=== PATIENT | female | born 1970 | race Caucasian/White ===

== ENCOUNTER 2021-08-17 19:42 | Inpatient (IN) | payer OTHER, SELFPAY ==
[2021-08-17 19:43] VITALS: BP 141/96; PULSE 66; RESP 16; TEMP 36.1; O2SAT 95; BMI 25.8
[2021-08-17 20:01] LABS: Glucose, Dipstick 100 mg/dl (Normal); Leukocyte Esterase-Dipstick 100 /ul (Negative); Nitrite-Dipstick Positive (Negative); Occult Blood-Urine 150 /ul (Negative); Protein-Dipstick 30 mg/dl (Negative); Specific Gravity, Urine 1.025 (1.002-1.030); Urine Clarity Sl. Cloudy (Clear); Urine Urobilinogen 8 mg/dl (Normal)
[2021-08-17 20:02] LABS: Color, Urine SEE COMMENT BELOW (Yellow); Ketone-Dipstick 150 mg/dl (Negative); Urine Bilirubin Dipstick 6 mg/dL (Negative)
--- NOTE | 2021-08-17 20:02 | US_ITS ---
HISTORY: PAIN -- concerns for choledocholithiasis,with pancreatitis TECHNIQUE: Trevizo scale and color doppler imaging was performed of the right upper quadrant structures. COMPARISON: Concurrent CT abdomen and pelvis FINDINGS: LIVER: Normal in echogenicity. Small ovoid 9 mm hyperechoic, non-shadowing lesion within posterior right lobe of liver. Right lobe measures 16 cm length. Mild intrahepatic biliary ductal dilatation. Main portal vein is patent. PANCREAS: Unremarkable as visualized. GALLBLADDER AND BILIARY TREE: Dilated. Gallbladder measures up to 13.5 cm in length. Gallbladder lumen filled with sludge and multiple shadowing stones. Thickened gallbladder wall measures 4 mm. Pericholecystic fluid demonstrated. Sonographic Zapata's sign is positive. Dilated extrahepatic biliary ducts. Common bile duct measures 8.6 mm. KIDNEYS: The right kidney measures 10.6 cm in length. No hydronephrosis. No focal parenchymal lesion or shadowing stones. AORTA AND IVC: Not imaged. US/Gallbladder IMPRESSION: 1. Constellation of findings compatible with acute cholecystitis. There is also biliary ductal dilatation. Recommend surgical consultation. 2. Small lesion within right lobe of liver with sonographic and CT characteristics compatible with benign hemangioma. at 2231 Reported and signed by: Tuan Walters MD Electronically Signed: Tuan Walters MD at 22:30 EDT Tel , Service support ,
--- NOTE | 2021-08-17 20:02 | CT_ITS ---
HISTORY: vomiting -- abd pain, jaundice, EXAMINATION: CT Abdomen And Pelvis W/ Contrast Injection TECHNIQUE: Helically acquired images were obtained of the abdomen and pelvis following IV contrast. A radiation dose optimization technique was used for this scan. IV Contrast dosage and agent: 100mL [id number]-370 Oral contrast: None. COMPARISON: None FINDINGS: LOWER CHEST: Mildly elevated right hemidiaphragm. No acute basilar airspace disease. Heart size within normal limits. LIVER: There is intrahepatic periportal edema and mild biliary ductal dilatation. Hazy subcentimeter low-attenuation lesion within posterior right lobe of liver. GALLBLADDER AND BILIARY TREE: Markedly dilated gallbladder contains heterogeneous intraluminal attenuation suggesting stones and/or sludge. There is pericholecystic edema and mild gallbladder wall thickening. Dilated extrahepatic biliary ducts with mucosal wall enhancement. Enhancement involves predominantly cystic duct. No radiopaque intraductal stone identified. Proximal common bile duct measures up to 11 mm diameter with somewhat gradual tapering distally at pancreatic head. KIDNEYS AND URETERS: Normal renal size. No concerning lesion. There is no perinephric inflammation or hydronephrosis. ADRENAL GLANDS: Non-enlarged. SPLEEN: Normal size without discrete mass. PANCREAS: No discrete mass or peripancreatic inflammation. BOWEL: Normal appendix posterior to cecum within right lower quadrant. No bowel obstruction or significant bowel thickening. Noninflamed distal colonic diverticula. LYMPH NODES: No enlarged mesenteric or retroperitoneal lymph nodes. PERITONEUM: Small amount of free peritoneal fluid. No free air. VESSELS: Major vessels are normal caliber and unremarkable. URINARY BLADDER: Unremarkable. REPRODUCTIVE ORGANS: No pelvic masses. ABDOMINAL WALL: No acute findings or significant hernia defect. BONES: Intact with no suspicious osseous lesion. CT/Abdomen/Pelvis W IV Cont ONLY IMPRESSION: Findings suggesting acute cholecystitis and superimposed cholangitis. There is intrahepatic and extra hepatic biliary ductal dilatation, and mild intrahepatic periportal edema. Differential includes choledocholithiasis, distal obstructing ductal lesion or stricture. Recommend surgical consultation and possible further evaluation with ERCP. Small indeterminate low-attenuation hepatic lesion. Possible benign cyst or hemangioma but metastatic lesion is not excluded, in light of above findings. Individualized dose optimization techniques were used for this CT. at 2051 Reported and signed by: Tuan Walters MD Electronically Signed: Tuan Walters MD at 20:51 EDT Tel , Service support ,
--- NOTE | 2021-08-17 20:03 | EDS_ITS ---
HPI HPI - GI History of Present Illness Chief Complaint: Abd Pain Informant: patient and spouse/S.O. Narrative Narrative: Here with significant other increasing abdominal pain for the past week. Yesterday nausea and vomiting. No hematemesis. Today noted jaundice. No urinary symptoms. Postmenopausal. Only surgical history is umbilical hernia 22 years ago. No daily medications. No history of similar. Normal bowel movements last 1 was yesterday with normal color. Pain started in the mid abdomen. Prior similar symptoms: No PFSH PFSH Medical History no medical history Home Medications NK 08/17/21 [History Last Taken Unknown] Allergy/AdvReac Type Severity Reaction Status Date / Time No Known Allergies Allergy Verified 08/17/21 19:44 Surgical History H/O hernia repair Surgical History no surgical history Social History Smoking Status: Never smoker ROS ROS ED Constitutional Constitutional ED: Denies chills, fever(s) or sweats Eyes Eyes: Denies change in vision ENT ENT ED: Denies dysphagia or sore throat Cardiovascular Cardiovascular: Denies chest pain, leg edema, palpitations or racing heartbeat Respiratory/Chest Respiratory/Chest: Denies cough, dyspnea or dyspnea on exertion Gastrointestinal Gastrointestinal: Reports abdominal pain, nausea and vomiting; Denies diarrhea Genitourinary Genitourinary ED: Denies dysuria, hematuria or urinary frequency Musculoskeletal Musculoskeletal: Denies back pain, extremity pain or neck pain Integumentary Reports other Details: Yellow skin ; Denies rash or wounds Neurologic Neurologic: Denies headache(s), paresthesias or weakness EXAM Physical Exam Const Vital Signs: 08/17/21 19:43 Temperature 97 F L Temperature Source Temporal Pulse Rate 66 Respiratory Rate 16 Blood Pressure 141/96 H Blood Pressure Mean 111 Pulse Ox 95 Positive well nourished and well developed Constitutional Narrative: Nontoxic, uncomfortable General Appearance ED: well developed HEENT Reports moist mucous membranes normocephalic and atraumatic Eyes PERRL, EOMs intact bilaterally and conjunctivae normal General Eye ED: Yes normal appearance of both eyes and scleral icterus Neck no lymphadenopathy and supple General: Negative for tenderness Chest Wall Chest: Negative for tenderness Resp normal respiratory effort and normal air movement Effort and Inspection: symmetric chest movement; Negative for respiratory distr ess Cardio regular rate, regular rhythm and no murmurs Peripheral Pulses: pulses 2+ throughout GI normal to inspection, nondistended, normoactive bowel sounds GI Narrative: Generalized tenderness to palpation. Palpation: Negative for guarding or rebound tenderness present Back/Spine no CVA tenderness and no thoracic nor lumbar tenderness Extremity normal to inspection General Extremety ED: Negative for edema or tenderness General Extremity: Negative for edema Neuro oriented x3 and no sensory deficits noted Sensorium / Orientation: awake and alert Skin no rashes or lesions noted General Skin Exam: jaundice MDM MDM MDM Narrative Medical decision making narrative: Patient with jaundice however presenting with abdominal pain vomiting prior to symptoms. Clinically with history concerning for potential cold though cholelithiasis possible pancreatitis with the vomitin g. Laboratory studies ordered with urine, CT abdomen pelvis IV contrast and right upper quadrant ultrasound ordered for further evaluation. Patient treated with morphine Zofran IV fluids. Laboratory studies notes white count 12.7 lipase was 50, elevated liver enzymes with direct bilirubin up at 7.3. Urine positive for nitrites and leukocytes. Culture sent. She denies urine symptoms. CT scan resulted first noting concerns for choledocholithiasis, acute cholecystitis along with superimposed cholangitis. Noted intrahepatic extrahepatic biliary duct dilatation with mild periportal edema, also noted concerns for 11 mm common bile duct dilatation proximally. Patient sodium at 125. I discussed with on-call surgeon Dr. Draper, states patient would need an ERCP first. States GI is on-call for the weekend. He will follow-up for eventual cholecystectomy after ERCP. I spoke with Dr. Taylor, updated on patient's presentations and findings and concerns. Patient vitals are stable cu rrently. Agrees with Zosyn being started. Patient to be kept n.p.o. after midnight, he was seen in the morning for plan ERCP. Hospitalist, Dr. Labm, discussed with for admission. Lab Data Labs: Laboratory Results - last 24 hr 08/17/21 08/17/21 08/17/21 19:47 20:00 20:00 WBC 12.7 H RBC 4.74 Hgb 14.2 Hct 40.3 MCV 85.0 MCH 30.0 MCHC 35.2 RDW Std Deviation 36.8 RDW Coeff of Sly 11.8 Plt Count 283 MPV 10.2 Immature Gran % (Auto) 0.600 Neut % (Auto) 84.8 H Lymph % (Auto) 5.5 L Oliver % (Auto) 9.0 Eos % (Auto) 0.0 Baso % (Auto) 0.1 Absolute Neuts (auto) 10.7 H Absolute Lymphs (auto) 0.70 L Nucleated RBC % 0 Sodium 125 L Potassium 3.4 L Chloride 88 L Carbon Dioxide 26.0 Anion Gap 11 BUN 6 L Creatinine 0.67 Estim Creat Clear Calc 92.99 Est GFR (MDRD) Af Amer 119 Est GFR (MDRD) Non-Af 99 BUN/Creatinine Ratio 9.0 L Glucose 147 H Lactic Acid Calcium 9.0 Total Bilirubin 9.70 H Direct Bilirubin 7.38 H AST 236 H ALT 666 H Alkaline Phosphatase 329 H Total Protein 7.8 Albumin 3.7 Globulin 4.1 Lipase 50 L Urine Color SEE COMMENT BELOW Urine Clarity Sl. Cloudy Urine pH 5.0 Ur Specific [place] 1.025 Urine Protein 30 H Urine Glucose (UA) 100 H Urine Ketones 150 A* Urine Occult Blood 150 H Urine Nitrite Positive H Urine Bilirubin 6 H Urine Urobilinogen 8 H Ur Leukocyte Esterase 100 H Urine RBC 0-5 SEEN Urine WBC 0-5 SEEN Ur Squamous Epith Cells 0-5 SEEN Urine Bacteria 1+ Urine Mucus 1+ 08/17/21 20:48 WBC RBC Hgb Hct MCV MCH MCHC RDW Std Deviation RDW Coeff of Sly Plt Count MPV Immature Gran % (Auto) Neut % (Auto) Lymph % (Auto) Oliver % (Auto) Eos % (Auto) Baso % (Auto) Absolute Neuts (auto) Absolute Lymphs (auto) Nucleated RBC % Sodium Potassium Chloride Carbon Dioxide Anion Gap BUN Creatinine Estim Creat Clear Calc Est GFR (MDRD) Af Amer Est GFR (MDRD) Non-Af BUN/Creatinine Ratio Glucose Lactic Acid 1.0 Calcium Total Bilirubin Direct Bilirubin AST ALT Alkaline Phosphatase Total Protein Albumin Globulin Lipase Urine Color Urine Clarity Urine pH Ur Specific [place] Urine Protein Urine Glucose (UA) Urine Ketones Urine Occult Blood Urine Nitrite Urine Bilirubin Urine Urobilinogen Ur Leukocyte Esterase Urine RBC Urine WBC Ur Squamous Epith Cells Urine Bacteria Urine Mucus Radiography Diagnostic Testing: Clinical Impression(s) from Imaging Studies Abdomen/Pelvis CT 08/17/21 20:02 IMPRESSION: Findings suggesting acute cholecystitis and superimposed cholangitis. There is intrahepatic and extra hepatic biliary ductal dilatation, and mild intrahepatic periportal edema. Differential includes choledocholithiasis, distal obstructing ductal lesion or stricture. Recommend surgical consultation and possible further evaluation with ERCP. Small indeterminate low-attenuation hepatic lesion. Possible benign cyst or hemangioma but metastatic lesion is not excluded, in light of above findings. Individualized dose optimization techniques were used for this CT. at 2052 Reported and signed by: Tuan Walters MD Electronically Signed: Tuan Walters MD at 20:51 EDT Tel , Service support , Gallbladder Ultrasound 08/17/21 20:02 IMPRESSION: 1. Constellation of findings compatible with acute cholecystitis. There is also biliary ductal dilatation. Recommend surgical consultation. 2. Small lesion within right lobe of liver with sonographic and CT characteristics compatible with benign hemangioma. at 2231 Reported and signed by: Tuan Walters MD Electronically Signed: Tuan Walters MD at 22:30 EDT Tel , Service support , Discharge Plan Dx/Rx/DC Orders Clinical Impression: Choledocholithiasis with acute cholecystitis with obstruction, Acute cholangitis, Transaminitis, Abdominal pain Disposition Disposition: Acute Care Hospital [facility] Discharge Date/Time: 08/17/21 22:19
[2021-08-17 20:06] LABS: Absolute Neutrophil Count 10.7 X10^3/uL (2.0-7.7); Basophil# 0.01 X10^3/uL; Basophil% 0.1 % (0-1); Hematocrit 40.3 % (37-47); Hemoglobin 14.2 g/dL (12.0-15.0); Lymphocyte % 5.5 % (19-41); Mean Corp Hgb Conc 35.2 g/dL (32-36); Mean Platelet Vol. 10.2 fl (6.2-12.0); Monocyte# 1.14 X10^3/uL; NRBC Flagged by Analyzer 0 % (0-5); Neutrophil # 10.72 X10^3/uL (2.7-7.7); Neutrophil % 84.8 % (47-70); Platelet Count 283 K/mm3 (150-450); RBC Distribution Width CV 11.8 % (11.6-14.6); RBC Distribution Width SD 36.8 fl (35.1-43.9); Red Blood Count 4.74 M/mm3 (4.2-5.4); White Blood Count 12.7 K/mm3 (4.4-11.0)
[2021-08-17 20:08] LABS: Bacteria 1+ /hpf (None Seen); Mucous, Urine 1+ /hpf (<or=2+); Red Blood Cells-Urine 0-5 SEEN /hpf (0-5); Squamous Epithelial Cells - UA 0-5 SEEN /hpf (5-10); White Blood Cells 0-5 SEEN /hpf (0-5)
[2021-08-17] MEDS: 0.9% Normal Saline 1,000 ML 1000 ML IV (20:10)
[2021-08-17] MEDS: Ondansetron 4 MG/2 ML Vial IV (20:13)
[2021-08-17] MEDS: Morphine 4 MG/ML Syringe IV ×2 (20:14→21:44)
[2021-08-17 20:21] LABS: AST(SGOT) 236 U/L (15-37); Alanine Aminotransfer ALT/SGPT 666 U/L (13-56); Albumin, Serum 3.7 g/dL (3.2-5.0); Alkaline Phosphatase 329 U/L (45-117); Anion Gap 11 (5-15); BUN 6 mg/dL (7-18); Bilirubin, Direct 7.38 mg/dL (0.00-0.30); Chloride 88 mmol/L (98-107); Creatinine, Serum 0.67 mg/dL (0.55-1.02); EST Glomerular Filtration Rate 99 mL/min (>60); Est Glom Filt Rate - Afr Amer 119 mL/min (>60); Estimated Creatinine Clearance 92.99 ml/min; Globulin 4.1 g/dL (2.2-4.2); Glucose 147 mg/dL (74-106); Lipase 50 U/L (73-393); Potassium 3.4 mmol/L (3.5-5.1); Protein, Total 7.8 g/dL (6.4-8.2); Sodium Level 125 mmol/L (136-145)
--- NOTE | 2021-08-17 21:53 | HP.PCM.HOS_ITS ---
HPI - General General Date of Admission: 08/17/21 HPI Narrative ODALIS RUTLEDGE, is a 51 F who presents to the emergency department with a 6-day history of progressively worsening excruciating abdominal pain. Her abdominal pain is. Umbilical and it radiates to the epigastric area. She described her pain as strong. The pain is aggravated with food. She took some Epson salt baths helped improved her pain. Associated with symptom is nausea, vomiting; jaundice and brownish-yellow urine. Her stool color is normal. She thinks she has mild constipation. Last time her bowels move was a day before presentation. Typically her bowels move daily. Emergency plan doctor discussed the case with general surgeon and then a health researcher at the ED. [facility] Medical History no medical history no medical history Home Medications NK 08/17/21 [History Last Taken Unknown] Allergy/AdvReac Type Severity Reaction Status Date / Time No Known Allergies Allergy Verified 08/17/21 19:44 Family History other other (Denies family medical history) Surgical History H/O hernia repair Surgical History no surgical history Social History Smoking Status: Never smoker ROS ROS Narrative Constitutional: Reports anorexia. Denies fever, chills, fatigue, and change in weight Eyes: Denies blurry vision, change in eye color, change in vision, discharge from eye(s), double vision, erythema, eye pain, loss of vision or other HEENT: Denies abnormal hearing, dysphagia, ear pain, epistaxis, headache(s), hearing loss, nasal congestion, nasal discharge, post nasal drip, sinus pres sure, sore throat or other Cardiovascular: Denies chest pain or palpitations. Denies dyspnea on exertion, orthopnea and paroxysmal nocturnal dyspnea Respiratory/Chest: Denies cough, excessive phlegm production, shortness of breath with exertion and wheezing Gastrointestinal: Reports abdominal pain, nausea, vomiting and constipation. Denies coffee ground emesis, diarrhea, dyspepsia, hematemesis, hematochezia, loose stools, melena, or other Genitourinary: Reports yellowish-brown urine. Denies burning urination, difficulty urinating, dysuria, hematuria, nocturia, urinary frequency, urinary hesitancy, urinary incontinence, urinary urgency or other Musculoskeletal: Denies arthralgias, back pain, joint pain, joint stiffness, joint swelling, myalgias, neck pain or other Neurologic: Denies abnormal gait, abnormal speech, confusion, disequilibrium, dizziness, focal weakness, headache(s), numbness, paresthesias, seizure-like activity, seizures, syncope, tingling, tremor(s) or other Psychiatric: Denies anxiety, depression, homicidal ideation, suicidal ideation or other Endocrinology: Denies change in body appearance, cold intolerance, excessive sweating, heat intolerance, polydipsia, polyuria or other Hematologic/Lymphatic: Denies anemia, easy bleeding, easy bruising, lymphaden opathy or other Integumentary: Reports jaundice. Allergic/Immunologic: Denies rhinitis, hives, eczema, asthma or other Vital Signs Vital Signs Vital Signs: 08/17/21 19:43 Temperature 97 F L Temperature Source Temporal Pulse Rate 66 Respiratory Rate 16 Blood Pressure 141/96 H Blood Pressure Mean 111 Pulse Ox 95 Weight Weight: 72.575 kg Body Mass Index (BMI) 25.8 Physical Exam Narrative Physical exam: General: Well-nourished, well-developed. Head: Normocephalic, atraumatic, no tenderness Eyes: Sclerae icterus; PERRLA, EOMI ENT, no trauma, moist mucous membranes, no rhinorrhea Neck: Nontender, full range of motion, no spinal tenderness, deformities, step- off CVS: Regular rate and rhythm. S1-S2 present. No murmur, gallop or rub. Respiratory : clear to auscultation bilaterally, chest wall nontender, no wheezing Abdomen: Soft, tender, nondistended, normal bowel sounds, no masses : Deferred Back: Nontender, no CVA tenderness, no midline spinal tenderness, deformities, step-offs Extremities: Nontender full range of motion, no trauma Skin: Jaundiced, no trauma, no abrasions Neuro: Alert, oriented, cranial nerves II through XII grossly intact. Psychiatry: Normal mood. Normal affect. Not depressed. Not anxious. Results Lab / Micro Data Result Diagrams: 08/17/21 20:00 08/17/21 20:00 Labs: Laboratory Results - last 24 hr 08/17/21 19:47: Urine Color SEE COMMENT BELOW, Urine Clarity Sl. Cloudy, Urine pH 5.0, Ur Specific [place] 1.025, Urine Protein 30 H, Urine Glucose (UA) 100 H, Urine Ketones 150 A*, Urine Occult Blood 150 H, Urine Nitrite Positive H, Urine Bilirubin 6 H, Urine Urobilinogen 8 H, Ur Leukocyte Esterase 100 H, Urine RBC 0- 5 SEEN, Urine WBC 0-5 SEEN, Ur Squamous Epith Cells 0-5 SEEN, Urine Bacteria 1+, Urine Mucus 1+ 08/17/21 20:00: WBC 12.7 H, RBC 4.74, Hgb 14.2, Hct 40.3, MCV 85.0, MCH 30.0, MCHC 35.2, RDW Std Deviation 36.8, RDW Coeff of Sly 11.8, Plt Count 283, MPV 10.2, Immature Gran % (Auto) 0.600, Neut % (Auto) 84.8 H, Lymph % (Auto) 5.5 L, [place] % (Auto) 9.0, Eos % (Auto) 0.0, Baso % (Auto) 0.1, Absolute Neuts (auto) 10.7 H, Absolute Lymphs (auto) 0.70 L, Nucleated RBC % 0 08/17/21 20:00: Sodium 125 L, Potassium 3.4 L, Chloride 88 L, Carbon Dioxide 26.0, Anion Gap 11, BUN 6 L, Creatinine 0.67, Estim Creat Clear Calc 92.99, Est GFR (MDRD) Af Amer 119, Est GFR (MDRD) Non-Af 99, BUN/Creatinine Ratio 9.0 L, Glucose 147 H, Calcium 9.0, Total Bilirubin 9.70 H, Direct Bilirubin 7.38 H, AST 236 H, ALT 666 H, Alkaline Phosphatase 329 H, Total Protein 7.8, Albumin 3.7, Globulin 4.1, Lipase 50 L 08/17/21 20:48: Lactic Acid 1.0 Micro: Microbiology 08/17/21 20:38 Nasal Secretion SARS-CoV-2 Antigen (Rapid) - Final Radiology Impression Abdomen/Pelvis CT 08/17/21 20:02 IMPRESSION: Findings suggesting acute cholecystitis and superimposed cholangitis. There is intrahepatic and extra hepatic biliary ductal dilatation, and mild intrahepatic periportal edema. Differential includes choledocholithiasis, distal obstructing ductal lesion or stricture. Recommend surgical consultation and possible further evaluation with ERCP. Small indeterminate low-attenuation hepatic lesion. Possible benign cyst or hemangioma but metastatic lesion is not excluded, in light of above findings. Individualized dose optimization techniques were used for this CT. at 205 Reported and signed by: Tuan Walters MD Electronically Signed: Tuan Walters MD at 20:51 EDT Tel , Service support , Assessment & Plan Assessment/Plan (1) Choledocholithiasis with acute cholecystitis with obstruction: (2) Acute cholangitis: (3) Transaminitis: (4) Cholecystitis: PLAN: Acute cholangitis/acute cholecystitis/acute choledocholithiasis White count of 12.7 with neutrophilic predominance and with lymphopenia. Low- grade fever of 99.2F. Ultrasound showed acute cholecystitis; biliary dilatation and benign hepatic hemangioma. Abdomen/pelvis CT showed acute cholecystitis superimposed on cholangitis; and intrahepatic and extrahepatic biliary ductal dilatation. Abdominal ultrasound, abdomen and pelvis CT was independently interpreted and I agree with radiologist interpretation. Emergency Department doctor discussed the case with gastroenterology and general surgery. Gastroenterology and general surgery and consulted. Started on Zosyn in the emergency department and continued. CMP showed elevated total bili direct bili; and liver biochemistry. Trend CBC and CMP Keep n.p.o. Gentle IV hydration. Hyponatremia Review of CMP showed sodium of 125; chloride of 88. Likely secondary to secondary to hypovolemia from vomiting and decreased intake. Gentle hydration as above. Trend CMP. Hypokalemia Potassium of 3.4 on admission. IV normal saline potassium ordered. Trend BMP. DVT prophylaxis: No chemical prophylaxis as patient is surgical candidate. SCD ordered. Charges/Coding Visit Charges Inpatient E&M: 56336 Init Hosp L3
[2021-08-17 21:56] VITALS: BP 132/81; PULSE 67; RESP 18; TEMP 36.8; O2SAT 95
[2021-08-17 22:28] VITALS: BP 134/85; PULSE 62; RESP 16; TEMP 37.3; O2SAT 95; BMI 25.9
[2021-08-17] MEDS: MELATONIN 3 MG TABLET PO (22:52)
[2021-08-17] MEDS: proCHLORPERazine 10 MG/2 ML Vial 5 MG IV (22:52)
[2021-08-17] MEDS: 0.9% Normal Saline 1,000 ML 75 ML IV (22:52)
[2021-08-17] MEDS: Potassium Chloride 40 MEQ in 0.9% Normal Saline 1,000 ML 75 MEQ IV (23:45)
[2021-08-18] VITALS (14 sets, daily range): BP systolic 93–131; BP diastolic 57–89; PULSE 65–90; RESP 16–18; TEMP 36.7–37.3; O2SAT 92–99; BMI 25.9
[2021-08-18] MEDS: 0.9% Saline Lock 10 ML Syringe IV ×2 (02:32→12:36)
[2021-08-18] MEDS: Morphine 4 MG/ML Syringe IV ×4 (02:32→12:36)
[2021-08-18 05:20] LABS: Absolute Lymphocyte Count 0.56 X10^3/uL (0.83-4.51); Absolute Neutrophil Count 9.6 X10^3/uL (2.0-7.7); Basophil# 0.02 X10^3/uL; Basophil% 0.2 % (0-1); Hematocrit 38.1 % (37-47); Hemoglobin 13.2 g/dL (12.0-15.0); Lymphocyte # 0.56 X10^3/ul (0.83-4.51); Lymphocyte % 4.8 % (19-41); Mean Corp Hgb Conc 34.6 g/dL (32-36); Mean Corpuscular Volume 86.6 fL (81-99); Mean Platelet Vol. 10.4 fl (6.2-12.0); Monocyte% 11.3 % (0-10); NRBC Flagged by Analyzer 0 % (0-5); Neutrophil # 9.57 X10^3/uL (2.7-7.7); Neutrophil % 82.8 % (47-70); POSITIVE DIFFERENTIAL YES; Platelet Count 246 K/mm3 (150-450); RBC Distribution Width CV 11.9 % (11.6-14.6); RBC Distribution Width SD 38.1 fl (35.1-43.9); White Blood Count 11.6 K/mm3 (4.4-11.0)
[2021-08-18 05:42] LABS: Differential Indicated SCAN CRITERIA MET
[2021-08-18 05:46] LABS: ALB/GLOB Ratio 0.7 RATIO (0.9-2.4); AST(SGOT) 136 U/L (15-37); Alanine Aminotransfer ALT/SGPT 500 U/L (13-56); Albumin, Serum 2.9 g/dL (3.2-5.0); Alkaline Phosphatase 298 U/L (45-117); Anion Gap 9 (5-15); BUN 4 mg/dL (7-18); BUN/Creat Ratio 5.8 RATIO (10-20); Calcium,Total 8.5 mg/dL (8.5-10.1); Chloride 91 mmol/L (98-107); EST Glomerular Filtration Rate 94 mL/min (>60); Est Glom Filt Rate - Afr Amer 114 mL/min (>60); Estimated Creatinine Clearance 89.01 ml/min; Glucose 119 mg/dL (74-106); Potassium 3.6 mmol/L (3.5-5.1); Protein, Total 6.9 g/dL (6.4-8.2); Sodium Level 128 mmol/L (136-145)
--- NOTE | 2021-08-18 06:00 | EKG12_ITS ---
Test Reason : PRE OP Blood Pressure : / mmHG Vent. Rate : 068 BPM Atrial Rate : 068 BPM P-R Int : 138 ms QRS Dur : 084 ms QT Int : 368 ms P-R-T Axes : 075 033 008 degrees QTc Int : 391 ms Normal sinus rhythm Biatrial enlargement Low voltage QRS Nonspecific ST and T wave abnormality Abnormal ECG No previous ECGs available Confirmed by GOMEZ SAAB, GABRIELA ([id number]), assignment editor PAMELA FERREIRA ([id number]) on 08/20/2021 9:57:20 AM Referred By: SOSA Confirmed By:GABRIELA DYER MD
--- NOTE | 2021-08-18 07:24 | CON.PCM.GI_ITS ---
HPI Consult Data Date of Consult: 08/18/21 HPI Narrative HPI Narrative: ODALIS RUTLEDGE, is a 51 F who presents with significant other increasing abdominal pain for the past week. She has no past medical history. Her symptoms began with abdominal pain in mid epigastric area which was nonradiating associated with nausea, vomiting. She noted that she began having darkened urine followed by darkening yellowing skin and eyes. The only surgical history is umbilical hernia 22 years ago. No daily medications. No history of similar. Normal bowel movements last 1 was yesterday with normal color. Pain started in the mid abdomen. When she presented to the ED she was discovered to have a significant cholestatic hepatitis with jaundice. Her white count was also elevated. Blood cultures were drawn and antibiotic therapy was started. She had a CT scan abdomen pelvis that showed intra and extra hepatic ductal dilation. I was consulted for management. [facility] Medical History no medical history Home Medications NK 08/17/21 [History Last Taken Unknown] Allergy/AdvReac Type Severity Reaction Status Date / Time No Known Allergies Allergy Verified 08/17/21 19:44 Family History other Surgical History H/O hernia repair Surgical History no surgical history Social History Smoking Status: Never smoker ROS Review of Systems ROS Unobtainable: other Constitutional Constitutional: Denies fatigue, fever(s), poor appetite, weight gain or weight loss ENT HEENT: Denies mouth lesions Cardiovascular Cardiovascular: Denies abdominal bloating, abdominal edema or abdominal pain Respiratory/Chest Respiratory/Chest: Denies change in mental status, change in phlegm color, chest congestion or chest tightness Gastrointestinal Gastrointestinal: Reports abdominal pain and nausea Genitourinary Genitourinary: Denies abdominal discomfort, burning urination or itching Musculoskeletal Musculoskeletal: Reports as per HPI; Denies muscle weakness or myalgias Integumentary Integumentary: Denies jaundice Neurologic Neurologic: Denies lack of coordination or weakness Psychiatric Psychiatric: Denies confusion, depression, memory loss, mood swings, paranoia or suicidal ideation Endocrine Endocrinology: Denies systems reviewed and no addt'l complaints, except as documented Hematologic/Lymphatic Hematologic/Lymphatic: Denies anemia, easy bleeding, easy bruising or lymphadenopathy Allergic/Immunologic Allergic/Immunologic: Denies systems reviewed and no addt'l complaints, except as documented Physical Exam Const alert General Appearance: cooperative Orientation / Consciousness: oriented to person HEENT hearing grossly normal bilaterally Head and Scalp: normal to inspection Face and Sinus: face symmetric Nose: external nose normal Mouth: oral and palatal mucosa normal Eyes conjunctivae normal General Eye: normal appearance of both eyes Sclera: sclera abnormal Neck full ROM General: normal visual inspection Lymph Lymphatic: no lymphadenopathy noted Chest inspection of chest normal and palpation of chest normal Chest: symmetrical chest wall rise Resp normal respiratory effort Effort and Inspection: able to speak in complete sentences Cardio regular rate GI non-distended Auscultation: hypoactive bowel sounds Palpation: tender and no hepatosplenomegaly Percussion: normal to percussion Rectal Exam: deferred Neuro Speech: speech normal Gait (Neuro): normal gait Lab / Micro Data Result Diagrams: 08/18/21 04:54 08/18/21 04:54 Labs: Laboratory Results - last 24 hr 08/17/21 19:47: Urine Color SEE COMMENT BELOW, Urine Clarity Sl. Cloudy, Urine pH 5.0, Ur Specific [place] 1.025, Urine Protein 30 H, Urine Glucose (UA) 100 H, Urine Ketones 150 A*, Urine Occult Blood 150 H, Urine Nitrite Positive H, Urine Bilirubin 6 H, Urine Urobilinogen 8 H, Ur Leukocyte Esterase 100 H, Urine RBC 0- 5 SEEN, Urine WBC 0-5 SEEN, Ur Squamous Epith Cells 0-5 SEEN, Urine Bacteria 1+, Urine Mucus 1+ 08/17/21 20:00: WBC 12.7 H, RBC 4.74, Hgb 14.2, Hct 40.3, MCV 85.0, MCH 30.0, MCHC 35.2, RDW Std Deviation 36.8, RDW Coeff of Sly 11.8, Plt Count 283, MPV 10.2, Immature Gran % (Auto) 0.600, Neut % (Auto) 84.8 H, Lymph % (Auto) 5.5 L, [place] % (Auto) 9.0, Eos % (Auto) 0.0, Baso % (Auto) 0.1, Absolute Neuts (auto) 10.7 H, Absolute Lymphs (auto) 0.70 L, Nucleated RBC % 0 08/17/21 20:00: Sodium 125 L, Potassium 3.4 L, Chloride 88 L, Carbon Dioxide 26.0, Anion Gap 11, BUN 6 L, Creatinine 0.67, Estim Creat Clear Calc 92.99, Est GFR (MDRD) Af Amer 119, Est GFR (MDRD) Non-Af 99, BUN/Creatinine Ratio 9.0 L, Glucose 147 H, Calcium 9.0, Total Bilirubin 9.70 H, Direct Bilirubin 7.38 H, AST 236 H, ALT 666 H, Alkaline Phosphatase 329 H, Total Protein 7.8, Albumin 3.7, Globulin 4.1, Lipase 50 L 08/17/21 20:48: Lactic Acid 1.0 08/18/21 04:54: WBC 11.6 H, RBC 4.40, Hgb 13.2, Hct 38.1, MCV 86.6, MCH 30.0, MCHC 34.6, RDW Std Deviation 38.1, RDW Coeff of Sly 11.9, Plt Count 246, MPV 10.4, Immature Gran % (Auto) 0.900, Neut % (Auto) 82.8 H, Lymph % (Auto) 4.8 L, [place] % (Auto) 11.3 H, Eos % (Auto) 0.0, Baso % (Auto) 0.2, Absolute Neuts (auto) 9.6 H, Absolute Lymphs (auto) 0.56 L, Nucleated RBC % 0 08/18/21 04:54: Sodium 128 L, Potassium 3.6, Chloride 91 L, Carbon Dioxide 28.0, Anion Gap 9, BUN 4 L, Creatinine 0.70, Estim Creat Clear Calc 89.01, Est GFR (MDRD) Af Amer 114, Est GFR (MDRD) Non-Af 94, BUN/Creatinine Ratio 5.8 L, Glucose 119 H, Calcium 8.5, Total Bilirubin 9.10 H, AST 136 H, ALT 500 H, Alkaline Phosphatase 298 H, Total Protein 6.9, Albumin 2.9 L, Globulin 4.0, Albumin/Globulin Ratio 0.7 L Micro: Microbiology 08/17/21 20:38 Nasal Secretion SARS-CoV-2 Antigen (Rapid) - Final Radiology Impression Abdomen/Pelvis CT 08/17/21 20:02 IMPRESSION: Findings suggesting acute cholecystitis and superimposed cholangitis. There is intrahepatic and extra hepatic biliary ductal dilatation, and mild intrahepatic periportal edema. Differential includes choledocholithiasis, distal obstructing ductal lesion or stricture. Recommend surgical consultation and possible further evaluation with ERCP. Small indeterminate low-attenuation hepatic lesion. Possible benign cyst or hemangioma but metastatic lesion is not excluded, in light of above findings. Individualized dose optimization techniques were used for this CT. at 2052 Reported and signed by: Tuan Walters MD Electronically Signed: Tuan Walters MD at 20:51 EDT Tel , Service support , Gallbladder Ultrasound 08/17/21 20:02 IMPRESSION: 1. Constellation of findings compatible with acute cholecystitis. There is also biliary ductal dilatation. Recommend surgical consultation. 2. Small lesion within right lobe of liver with sonographic and CT characteristics compatible with benign hemangioma. at 2231 Reported and signed by: Tuan Walters MD Electronically Signed: Tuan Walters MD at 22:30 EDT Tel , Service support , Assessment & Plan Assessment/Plan (1) Choledocholithiasis with acute cholecystitis with obstruction: PLAN: Patient will need to go undergo ERCP today. Her white blood cell count is improving as is her sodium and LFTs. She is still in a lot of pain. She would continue IV antibiotics, remain n.p.o. Alternatives risk and benefits were explained to the patient including and not withstanding post ERCP pancreatitis. Charges/Coding Visit Charges Inpatient E&M: 90129 Init Hosp L2
--- NOTE | 2021-08-18 08:37 | EX.PCM.CON.S ---
Assessment & Plan Assessment/Plan (1) Choledocholithiasis with acute cholecystitis with obstruction: PLAN: Patient has elevated LFTs and CT scan shows dilated common bile duct. Patient also has thickened gallbladder wall with gallstones. She likely has acute choledocholithiasis and acute cholecystitis. Patient is having ERCP today with GI and I plan for laparoscopic cholecystectomy tomorrow. I discussed the procedure in detail with the patient. I discussed the risks, benefits, and alternatives of the procedure. I discussed the risks including but not limited to bleeding, infection, injury to surrounding organs such as the liver, bile duct, bowels. I did discuss the possibility of having to convert to an open procedure as well as the possibility that if any injuries occurred this may necessitate further surgery at a tertiary care center. Landon Draper MD Pager: [facility] [address] [place] [address], [address] [place] [address] Office: HPI Consult Data Date of Consult: 08/18/21 HPI Narrative HPI Narrative: ODALIS RUTLEDGE, is a 51 F who presents with abdominal pain for a week. Patient reports pain in the right upper quadrant. This morning the patient reports pain intermittently. [facility] Medical History no medical history Home Medications NK 08/17/21 [History Last Taken Unknown] Allergy/AdvReac Type Severity Reaction Status Date / Time No Known Allergies Allergy Verified 08/17/21 19:44 Family History other Surgical History H/O hernia repair Surgical History no surgical history Social History Smoking Status: Never smoker ROS Constitutional Constitutional: Denies anorexia or fatigue ENT HEENT: Denies abnormal hearing Cardiovascular Cardiovascular: Denies chest pain Respiratory/Chest Respiratory/Chest: Denies cough Gastrointestinal Gastrointestinal: Reports abdominal pain and constipation; Denies diarrhea, hematemesis, nausea or vomiting Genitourinary Genitourinary: Denies change in urinary stream Musculoskeletal Musculoskeletal: Denies abnormal gait Integumentary Integumentary: Denies new lesions Neurologic Neurologic: Denies abnormal gait Endocrine Endocrinology: Denies flushing Hematologic/Lymphatic Hematologic/Lymphatic: Denies easy bleeding Physical Exam Const alert and oriented x3 Exam Limitations: no limitations HEENT normocephalic Eyes PERRL Resp normal respiratory effort Cardio Rate: regular rate GI soft to palpation Palpation: tender RUQ Lab / Micro Data Result Diagrams: 08/18/21 04:54 08/18/21 04:54 Labs: Laboratory Results - last 24 hr 08/17/21 19:47: Urine Color SEE COMMENT BELOW, Urine Clarity Sl. Cloudy, Urine pH 5.0, Ur Specific [place] 1.025, Urine Protein 30 H, Urine Glucose (UA) 100 H, Urine Ketones 150 A*, Urine Occult Blood 150 H, Urine Nitrite Positive H, Urine Bilirubin 6 H, Urine Urobilinogen 8 H, Ur Leukocyte Esterase 100 H, Urine RBC 0-5 SEEN, Urine WBC 0-5 SEEN, Ur Squamous Epith Cells 0-5 SEEN, Urine Bacteria 1+, Urine Mucus 1+ 08/17/21 20:00: WBC 12.7 H, RBC 4.74, Hgb 14.2, Hct 40.3, MCV 85.0, MCH 30.0, MCHC 35.2, RDW Std Deviation 36.8, RDW Coeff of Sly 11.8, Plt Count 283, MPV 10.2, Immature Gran % (Auto) 0.600, Neut % (Auto) 84.8 H, Lymph % (Auto) 5.5 L, [place] % (Auto) 9.0, Eos % (Auto) 0.0, Baso % (Auto) 0.1, Absolute Neuts (auto) 10.7 H, Absolute Lymphs (auto) 0.70 L, Nucleated RBC % 0 08/17/21 20:00: Sodium 125 L, Potassium 3.4 L, Chloride 88 L, Carbon Dioxide 26.0, Anion Gap 11, BUN 6 L, Creatinine 0.67, Estim Creat Clear Calc 92.99, Est GFR (MDRD) Af Amer 119, Est GFR (MDRD) Non-Af 99, BUN/Creatinine Ratio 9.0 L, Glucose 147 H, Calcium 9.0, Total Bilirubin 9.70 H, Direct Bilirubin 7.38 H, AST 236 H, ALT 666 H, Alkaline Phosphatase 329 H, Total Protein 7.8, Albumin 3.7, Globulin 4.1, Lipase 50 L 08/17/21 20:48: Lactic Acid 1.0 08/18/21 04:54: WBC 11.6 H, RBC 4.40, Hgb 13.2, Hct 38.1, MCV 86.6, MCH 30.0, MCHC 34.6, RDW Std Deviation 38.1, RDW Coeff of Sly 11.9, Plt Count 246, MPV 10.4, Immature Gran % (Auto) 0.900, Neut % (Auto) 82.8 H, Lymph % (Auto) 4.8 L, [place] % (Auto) 11.3 H, Eos % (Auto) 0.0, Baso % (Auto) 0.2, Absolute Neuts (auto) 9.6 H, Absolute Lymphs (auto) 0.56 L, Nucleated RBC % 0 08/18/21 04:54: Sodium 128 L, Potassium 3.6, Chloride 91 L, Carbon Dioxide 28.0, Anion Gap 9, BUN 4 L, Creatinine 0.70, Estim Creat Clear Calc 89.01, Est GFR (MDRD) Af Amer 114, Est GFR (MDRD) Non-Af 94, BUN/Creatinine Ratio 5.8 L, Glucose 119 H, Calcium 8.5, Total Bilirubin 9.10 H, AST 136 H, ALT 500 H, Alkaline Phosphatase 298 H, Total Protein 6.9, Albumin 2.9 L, Globulin 4.0, Albumin/Globulin Ratio 0.7 L Micro: Microbiology 08/17/21 20:38 Nasal Secretion SARS-CoV-2 Antigen (Rapid) - Final Radiology Impression Abdomen/Pelvis CT 08/17/21 20:02 IMPRESSION: Findings suggesting acute cholecystitis and superimposed cholangitis. There is intrahepatic and extra hepatic biliary ductal dilatation, and mild intrahepatic periportal edema. Differential includes choledocholithiasis, distal obstructing ductal lesion or stricture. Recommend surgical consultation and possible further evaluation with ERCP. Small indeterminate low-attenuation hepatic lesion. Possible benign cyst or hemangioma but metastatic lesion is not excluded, in light of above findings. Individualized dose optimization techniques were used for this CT. at 205 Reported and signed by: Tuan Walters MD Electronically Signed: Tuan Walters MD at 20:51 EDT Tel , Service support , Gallbladder Ultrasound 08/17/21 20:02 IMPRESSION: 1. Constellation of findings compatible with acute cholecystitis. There is also biliary ductal dilatation. Recommend surgical consultation. 2. Small lesion within right lobe of liver with sonographic and CT characteristics compatible with benign hemangioma. at 2231 Reported and signed by: Tuan Walters MD Electronically Signed: Tuan Walters MD at 22:30 EDT Tel , Service support ,
--- NOTE | 2021-08-18 10:08 | CASEMGMT ---
JOHAN RODRIGUEZ Assessment: Face to Face with pt for initial transition planning/care coordination assessment. JOHAN RODRIGUEZ introduced self and role at [facility], pt voices understanding and consents to assessment. Pt is O x4, drowsy and answers all questions appropriately at this time. Pt lying in bed in no distress. at bedside. Care providers, pharmacy, and demographics verified/updated. Admitting Dx: acute choleycystitis and cholangitis PCP:Pt denies having a PCP. Is agreeable to receiving a local healthcare provider directory. Specialists:Pt denies. Preferred Pharmacy: [facility] Retail Insurance: [employer] Prescription Benefit: no LW/HPOA: Pt states she has a LW/DPOA and her DPOA is either Willie Delgado or Romeo Delgado, both are brother in laws. Pt is aware that her DPOA is not on file at [facility] and may bring in at any time to be scanned into her chart. LNOK: Brien Oliveira, son; Bhupendra Oliveira, ; Romeo Delgado, brother in law; Willie Delgado, brother in law Living Arrangements: Pt lives in a ranch with entry through the basement without steps with her . Pt reports being I in ADL's and denies concerns at home. Transportation: Pt hires a airport driver when needed to attend medical appts. Denies concerns with transportation. DME/HHC/SNF: Pt denies having any DME, previous HHC or SNF stays. Pt states no concerns with going home at time of dc. Pt states no further concerns/needs. CM to follow. Advised pt to ask CM if any further question/concerns/needs arise, voices understanding. Pt Goal: Home Plan: Home with family support.
--- NOTE | 2021-08-18 13:33 | PN.HOSP_ITS ---
Subjective Subjective Mrs. Oliveira was admitted overnight with a 6 day progressively worsening abdominal pain that was epigastric and right upper quadrant. In the emergency department she was found to have significant cholestatic hepatitis with jaundice and elevated white count. CT was performed and showed intra and extrahepatic ductal dilation. The patient was recently medicated with morphine and therefore is sleepy but arousable. She is to go for an ERCP with Dr. Taylor this afternoon and to surgery tomorrow for a cholecystectomy. Objective Data Objective Data Vital Signs: Vital Signs Temp Pulse Resp BP Pulse Ox 98.2 F 66 18 131/87 H 96 08/18/21 12:46 08/18/21 12:46 08/18/21 12:46 08/18/21 12:46 08/18/21 12:46 Oxygen Delivery Method Room Air Weight: 72.8 kg Body Mass Index (BMI) 25.9 Intake & Output: Intake and Output for Last 24 Hours 08/16/21 08/17/21 08/18/21 23:59 23:59 23:59 Intake Total 1116.25 / 1191.25 184.25 / 184.25 Output Total 50 / 50 800 / 800 Balance 1066.25 / 1141.25 -615.75 / -615.75 Lab / Micro Data Result Diagrams: 08/18/21 04:54 08/18/21 04:54 Labs: Laboratory Results - last 24 hr 08/17/21 19:47: Urine Color SEE COMMENT BELOW, Urine Clarity Sl. Cloudy, Urine pH 5.0, Ur Specific [place] 1.025, Urine Protein 30 H, Urine Glucose (UA) 100 H, Urine Ketones 150 A*, Urine Occult Blood 150 H, Urine Nitrite Positive H, Urine Bilirubin 6 H, Urine Urobilinogen 8 H, Ur Leukocyte Esterase 100 H, Urine RBC 0- 5 SEEN, Urine WBC 0-5 SEEN, Ur Squamous Epith Cells 0-5 SEEN, Urine Bacteria 1+, Urine Mucus 1+ 08/17/21 20:00: WBC 12.7 H, RBC 4.74, Hgb 14.2, Hct 40.3, MCV 85.0, MCH 30.0, MCHC 35.2, RDW Std Deviation 36.8, RDW Coeff of Sly 11.8, Plt Count 283, MPV 10.2, Immature Gran % (Auto) 0.600, Neut % (Auto) 84.8 H, Lymph % (Auto) 5.5 L, [place] % (Auto) 9.0, Eos % (Auto) 0.0, Baso % (Auto) 0.1, Absolute Neuts (auto) 10.7 H, Absolute Lymphs (auto) 0.70 L, Nucleated RBC % 0 08/17/21 20:00: Sodium 125 L, Potassium 3.4 L, Chloride 88 L, Carbon Dioxide 26.0, Anion Gap 11, BUN 6 L, Creatinine 0.67, Estim Creat Clear Calc 92.99, Est GFR (MDRD) Af Amer 119, Est GFR (MDRD) Non-Af 99, BUN/Creatinine Ratio 9.0 L, Glucose 147 H, Calcium 9.0, Total Bilirubin 9.70 H, Direct Bilirubin 7.38 H, AST 236 H, ALT 666 H, Alkaline Phosphatase 329 H, Total Protein 7.8, Albumin 3.7, Globulin 4.1, Lipase 50 L 08/17/21 20:48: Lactic Acid 1.0 08/18/21 04:54: WBC 11.6 H, RBC 4.40, Hgb 13.2, Hct 38.1, MCV 86.6, MCH 30.0, MCHC 34.6, RDW Std Deviation 38.1, RDW Coeff of Sly 11.9, Plt Count 246, MPV 10.4, Immature Gran % (Auto) 0.900, Neut % (Auto) 82.8 H, Lymph % (Auto) 4.8 L, [place] % (Auto) 11.3 H, Eos % (Auto) 0.0, Baso % (Auto) 0.2, Absolute Neuts (auto) 9.6 H, Absolute Lymphs (auto) 0.56 L, Nucleated RBC % 0 08/18/21 04:54: Sodium 128 L, Potassium 3.6, Chloride 91 L, Carbon Dioxide 28.0, Anion Gap 9, BUN 4 L, Creatinine 0.70, Estim Creat Clear Calc 89.01, Est GFR (MDRD) Af Amer 114, Est GFR (MDRD) Non-Af 94, BUN/Creatinine Ratio 5.8 L, Glucose 119 H, Calcium 8.5, Total Bilirubin 9.10 H, AST 136 H, ALT 500 H, Alkaline Phosphatase 298 H, Total Protein 6.9, Albumin 2.9 L, Globulin 4.0, Albumin/Globulin Ratio 0.7 L Micro: Microbiology 08/17/21 19:47 Urine, Clean Catch Urine Culture - Preliminary Culture exhibits no growth. 08/17/21 20:38 Nasal Secretion SARS-CoV-2 Antigen (Rapid) - Final Radiography Diagnostic Testing: Radiology Impression Abdomen/Pelvis CT 08/17/21 20:02 IMPRESSION: Findings suggesting acute cholecystitis and superimposed cholangitis. There is intrahepatic and extra hepatic biliary ductal dilatation, and mild intrahepatic periportal edema. Differential includes choledocholithiasis, distal obstructing ductal lesion or stricture. Recommend surgical consultation and possible further evaluation with ERCP. Small indeterminate low-attenuation hepatic lesion. Possible benign cyst or hemangioma but metastatic lesion is not excluded, in light of above findings. Individualized dose optimization techniques were used for this CT. at 2052 Reported and signed by: Tuan Walters MD Electronically Signed: Tuan Walters MD at 20:51 EDT Tel , Service support , Gallbladder Ultrasound 08/17/21 20:02 IMPRESSION: 1. Constellation of findings compatible with acute cholecystitis. There is also biliary ductal dilatation. Recommend surgical consultation. 2. Small lesion within right lobe of liver with sonographic and CT characteristics compatible with benign hemangioma. at 2231 Reported and signed by: Tuan Walters MD Electronically Signed: Tuan Walters MD at 22:30 EDT Tel , Service support , Physical Exam Const Constitutional Narrative: Sleepy but awakens easily, was recently medicated with morphine, nontoxic-appearing, nursing at bedside Nutritional Appearance: overweight HEENT head/scalp atraumatic Head and Scalp: normocephalic Eyes Eyes Narrative: Scleral icterus Resp normal respiratory effort, no retractions, no use of accessory muscles and clear to auscultation bilaterally Auscultation: Negative for crackles, rales, rhonchi or wheezes Cardio regular rate, regular rhythm, S1 normal heart sound, S2 normal heart sound, no murmurs, no rub, no gallops, no clicks and no JVD GI normal to inspection, nondistended, normoactive bowel sounds, soft to palpation and non-distended Palpation: tender epigastric, LUQ and Zapata's sign Extremity no clubbing, cyanosis or edema Peripheral Pulses: Yes pulses 2+ throughout Skin no rashes or lesions noted, no wounds, skin turgor normal, No no jaundice, no petechiae and no mottling Skin Narrative: Jaundice Neuro CN's II-XII intact bilaterally, moves all extremities and no focal motor deficits Neuro Narrative: Sleepy but awakens and is appropriate Speech: speech normal Psych affect normal Assessment & Plan Assessment/Plan (1) Acute cholangitis: (2) Choledocholithiasis with acute cholecystitis with obstruction: (3) Cholecystitis: (4) Transaminitis: PLAN: Acute choledocholithiasis with acute cholecystitis and obstruction -Continue IV fluids -Continue as needed pain medication -Continue antiemetics -Patient to remain n.p.o. -Continue IV antibiotics -ERCP today with GI -Plan is for cholecystectomy tomorrow -Appreciate GI and general surgery input Acute hyponatremia/hypochloremia -Suspect related to volume depletion and dehydration -Slowly correcting with IV fluids -If continues to correct no further work-up needed -Patient is on no home medications that would induce hyponatremia Transaminitis -Secondary to above -Continue to monitor -Slightly improved today Hypokalemia -Resolved DVT prophylaxis -SCDs CODE STATUS -Full code Charges/Coding Visit Charges Inpatient E&M: 70238 Subs Hosp L2
[2021-08-18] MEDS: 0.9% Normal Saline 1,000 ML 100 ML IV (15:30)
--- NOTE | 2021-08-18 16:00 | RAD_ITS ---
STUDY: ERCP. REASON FOR EXAM: Female, 51 years old. Cholangitis FLUOROSCOPY TIME (if supplied): ( 4 minutes and 12 seconds. ) minutes/seconds. 6 images were submitted. TECHNIQUE: An ERCP was performed by the macerator operator. Imaging was submitted. COMPARISON: None. FINDINGS: There is evidence of gallstones. A biliary stent is seen within the common bile duct. RAD/ERCP Biliary/Pancreas IMPRESSION: Gallstones. A biliary stent was placed. Electronically Signed: Daniel Elizabeth MD at 8:34 EDT , Service support ,
--- NOTE | 2021-08-18 17:05 | OP.ERCP_ITS ---
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 Refer to note in patient chart for documentation of history and physical. Patient has symptoms of acute right upper quadrant abdominal pain and acute jaundice. The symptoms first began ,. This patient has no history of previous ERCP. Complications: No immediate complications. Procedure: Pre-Anesthesia Assessment: - Prior to the procedure, a History and Physical was performed, and patient medications and allergies were reviewed. The patient is competent. The risks and benefits of the procedure and the sedation options and risks were discussed with the patient. All questions were answered and informed consent was obtained. Patient identification and proposed procedure were verified by the physician in the pre-procedure area. Mental Status Examination: alert and oriented. Airway Examination: normal oropharyngeal airway and neck mobility. Respiratory Examination: clear to auscultation. CV Examination: normal. Prophylactic Antibiotics: The patient does not require prophylactic antibiotics. Prior Anticoagulants: The patient has taken no previous anticoagulant or antiplatelet agents. ASA Grade Assessment: II - A patient with mild systemic disease. After reviewing the risks and benefits, the patient was deemed in satisfactory condition to undergo the procedure. The anesthesia plan was to use moderate sedation / analgesia (conscious sedation). Immediately prior to administration of medications, the patient was re-assessed for adequacy to receive sedatives. The heart rate, respiratory rate, oxygen saturations, blood pressure, adequacy of pulmonary ventilation, and response to care were monitored throughout the procedure. The physical status of the patient was re-assessed after the procedure. After obtaining informed consent, the scope was passed under direct vision. Throughout the procedure, the patient's blood pressure, pulse, and oxygen saturations were monitored continuously. The [id number] endoscope was introduced through the mouth, and advanced to the duodenum and used to inject contrast into the bile duct and ventral pancreatic duct. The ERCP was accomplished without difficulty. The patient tolerated the procedure well. Moderate Sedation: Moderate (conscious) sedation was administered by the endoscopy nurse and supervised by the endoscopist. The patient's oxygen saturation, heart rate, blood pressure and response to care were monitored. Total physician intraservice time was 15 minutes. Scope In: 4:13:01 PM Scope Out: 4:52:32 PM Total Procedure Duration Time 0 hours 39 minutes 31 seconds Findings: The animation director film was normal. The esophagus was successfully intubated under direct vision. The scope was advanced to a normal major papilla in the descending duodenum without detailed examination of the pharynx, larynx and associated structures, and upper GI tract. The upper GI tract was grossly normal. The bile duct was deeply cannulated with the short-nosed traction sphincterotome. Contrast was injected. I personally interpreted the bile duct and pancreatic duct images. There was brisk flow of contrast through the ducts. Image quality was adequate. Contrast extended to the entire biliary tree. Contrast extended to the pancreatic duct. The main bile duct contained filling defect(s) thought to be a stone. The main bile duct was partially obstructed by what appeared to be a stone. Opacification of the main bile duct was successful using balloon occlusion technique. The maximum diameter of the ducts was 12 mm. The upper third of the main bile duct was mildly dilated and segmentally dilated, with a stone causing an obstruction. The largest diameter was 8 mm. The lower third of the main bile duct contained a single localized stenosis 3 mm in length. The major papilla was normal. The bile duct was deeply cannulated with the short-nosed traction sphincterotome. Contrast was injected. Opacification of the main bile duct was successful. The maximum diameter of the ducts was 4 mm. A 3 mm biliary sphincterotomy was made with a monofilament traction (standard) sphincterotome using ERBE electrocautery. The sphincterotomy oozed blood. One 10 Fr by 7 cm temporary stent with two external flaps and two internal flaps was placed 7 cm into the common bile duct. Bile flowed through the stent. The stent was in good position. A 0.035 inch x 260 cm angled Hydra Jagwire passed successfully into the right main hepatic duct. Dilation of the common bile duct with a 10-11-12 mm balloon dilator was successful. Impression: - The major papilla appeared normal. - A filling defect consistent with a stone was seen on the cholangiogram. - A single localized biliary stricture was found in the lower third of the main bile duct. The stricture was secondary to previous stone(s) and inflammatory. - The upper third of the main bile duct was mildly dilated, with a stone causing an obstruction. - Choledocholithiasis with a partial obstruction was found. Removal by biliary sphincterotomy was not accomplished; a stent was inserted. - A biliary sphincterotomy was performed. - One temporary stent was placed into the common bile duct. - Common bile duct was successfully dilated. - The pancreatogram was normal. Recommendation: - Avoid aspirin and nonsteroidal anti-inflammatory medicines for 2 weeks. - Clear liquid diet today. - Use broad spectrum antibiotics for 1 week. - Return to my office in 2 weeks. Procedure Code(s): --- Professional --- 35374, Endoscopic retrograde cholangiopancreatography (ERCP); with placement of endoscopic stent into biliary or pancreatic duct, including pre- and post-dilation and guide wire passage, when performed, including sphincterotomy, when performed, each stent [id number], Moderate sedation services provided by the same physician or other qualified health director career performing a gastrointestinal endoscopic service that sedation supports, requiring the presence of an independent trained observer to assist in the monitoring of the patient's level of consciousness and physiological status; initial 15 minutes of intra-service time; patient age 5 years or older (additional time may be reported with 44084, as appropriate) CPT copyright 2017 [employer]. All rights reserved. The codes documented in this report are preliminary and upon consumer banker review may be revised to meet current compliance requirements. Pedro Taylor DO 08/18/2021 5:05:21 PM This report has been signed electronically. Number of Addenda: 0 Note Initiated On: 08/18/2021 2:20 PM
--- NOTE | 2021-08-18 17:06 | OP.CCLET_ITS ---
08/18/2021 No Primary Care Physician Re : ERCP procedure for Mercedez Oliveira Dear Care Physician This procedure was performed on Wednesday, August 18, 2021. My impressions and recommendations are as follows: Impressions : - The major papilla appeared normal. - A filling defect consistent with a stone was seen on the cholangiogram. - A single localized biliary stricture was found in the lower third of the main bile duct. The stricture was secondary to previous stone(s) and inflammatory. - The upper third of the main bile duct was mildly dilated, with a stone causing an obstruction. - Choledocholithiasis with a partial obstruction was found. Removal by biliary sphincterotomy was not accomplished; a stent was inserted. - A biliary sphincterotomy was performed. - One temporary stent was placed into the common bile duct. - Common bile duct was successfully dilated. - The pancreatogram was normal. Recommendations : - Avoid aspirin and nonsteroidal anti-inflammatory medicines for 2 weeks. - Clear liquid diet today. - Use broad spectrum antibiotics for 1 week. - Return to my office in 2 weeks. My findings are described in the full procedure note, which is enclosed. If I can be of further assistance, please feel free to contact me at . Sincerely, Pedro Taylor, 08/18/2021 5:05:21 PM This report has been signed electronically.
[2021-08-18] MEDS: 0.9% Normal Saline 1,000 ML 999 ML IV ×2 (17:17→18:28)
--- NOTE | 2021-08-18 17:28 | SUR.PHASEI ---
ON PACU ARRIVAL, MARLON JUNG CRNA, REPORTS DR ULH GAVE HIM A VERBAL ORDER TO GIVE ADDITIONAL TWO LITERS IV NSS BOLUS POST-PROCEDURES. ORDER ENTERED.
[2021-08-18] MEDS: 0.9% Normal Saline 1,000 ML 200 ML IV (19:36)
[2021-08-19] VITALS (12 sets, daily range): BP systolic 105–131; BP diastolic 66–87; PULSE 66–80; RESP 14–18; TEMP 18.9–37.6; O2SAT 92–99; BMI 25.9
[2021-08-19] MEDS: 0.9% Normal Saline 1,000 ML 200 ML IV ×3 (00:41→10:57)
[2021-08-19 05:40] LABS: Absolute Lymphocyte Count 0.73 X10^3/uL (0.83-4.51); Absolute Neutrophil Count 6.3 X10^3/uL (2.0-7.7); Basophil# 0.02 X10^3/uL; Basophil% 0.3 % (0-1); Eosinophil# 0.02 X10^3/uL; Eosinophils% 0.3 % (0-5); Hematocrit 34.9 % (37-47); Hemoglobin 11.7 g/dL (12.0-15.0); Lymphocyte # 0.73 X10^3/ul (0.83-4.51); Lymphocyte % 9.2 % (19-41); Mean Corp Hgb Conc 33.5 g/dL (32-36); Mean Corpuscular Hgb 29.7 pg (27.0-32.0); Mean Corpuscular Volume 88.6 fL (81-99); Mean Platelet Vol. 10.3 fl (6.2-12.0); Monocyte# 0.78 X10^3/uL; Monocyte% 9.8 % (0-10); NRBC Flagged by Analyzer 0 % (0-5); Neutrophil # 6.34 X10^3/uL (2.7-7.7); Neutrophil % 79.5 % (47-70); Platelet Count 247 K/mm3 (150-450); RBC Distribution Width CV 12.1 % (11.6-14.6); RBC Distribution Width SD 39.2 fl (35.1-43.9); Red Blood Count 3.94 M/mm3 (4.2-5.4)
[2021-08-19 06:34] LABS: ALB/GLOB Ratio 0.6 RATIO (0.9-2.4); AST(SGOT) 75 U/L (15-37); Alanine Aminotransfer ALT/SGPT 291 U/L (13-56); Albumin, Serum 2.4 g/dL (3.2-5.0); Alkaline Phosphatase 277 U/L (45-117); Anion Gap 8 (5-15); BUN 5 mg/dL (7-18); BUN/Creat Ratio 8.7 RATIO (10-20); Calcium,Total 8.1 mg/dL (8.5-10.1); Chloride 102 mmol/L (98-107); Creatinine, Serum 0.58 mg/dL (0.55-1.02); EST Glomerular Filtration Rate 117 mL/min (>60); Est Glom Filt Rate - Afr Amer 142 mL/min (>60); Estimated Creatinine Clearance 107.42 ml/min; Globulin 3.7 g/dL (2.2-4.2); Glucose 91 mg/dL (74-106); Potassium 3.3 mmol/L (3.5-5.1); Protein, Total 6.1 g/dL (6.4-8.2); Sodium Level 136 mmol/L (136-145)
[2021-08-19] MEDS: Potassium Chloride Oral Tablet 20 MEQ 40 MEQ PO (07:40)
--- NOTE | 2021-08-19 08:04 | PN.SURG_ITS ---
Subjective Subjective Patient still reports right upper quadrant pain Objective Data Objective Data Vital Signs: Vital Signs Temp Pulse Resp BP Pulse Ox 98.2 F 75 18 116/71 95 08/19/21 07:43 08/19/21 07:43 08/19/21 07:43 08/19/21 07:43 08/19/21 07:43 Oxygen Delivery Method Room Air Weight: 160 lb 7.944 oz Body Mass Index (BMI) 25.9 Intake & Output: Intake and Output for Last 24 Hours 08/17/21 08/18/21 08/19/21 23:59 23:59 23:59 Intake Total 1116.25 / 1191.25 4254.25 / 4674.25 2470 / 2470 Output Total 50 / 50 800 / 900 100 / 100 Balance 1066.25 / 1141.25 3454.25 / 3774.25 2370 / 2370 Lab / Micro Data Result Diagrams: 08/19/21 05:10 08/19/21 05:10 Labs: Laboratory Results - last 24 hr 08/19/21 05:10: WBC 8.0, RBC 3.94 L, Hgb 11.7 L, Hct 34.9 L, MCV 88.6, MCH 29.7, MCHC 33.5, RDW Std Deviation 39.2, RDW Coeff of Sly 12.1, Plt Count 247, MPV 10.3, Immature Gran % (Auto) 0.900, Neut % (Auto) 79.5 H, Lymph % (Auto) 9.2 L, Bingham % (Auto) 9.8, Eos % (Auto) 0.3, Baso % (Auto) 0.3, Absolute Neuts (auto) 6.3, Absolute Lymphs (auto) 0.73 L, Nucleated RBC % 0 08/19/21 05:10: Sodium 136, Potassium 3.3 L, Chloride 102, Carbon Dioxide 26.0, Anion Gap 8, BUN 5 L, Creatinine 0.58, Estim Creat Clear Calc 107.42, Est GFR (MDRD) Af Amer 142, Est GFR (MDRD) Non-Af 117, BUN/Creatinine Ratio 8.7 L, Glucose 91, Calcium 8.1 L, Total Bilirubin 7.10 H, AST 75 H, ALT 291 H, Alkaline Phosphatase 277 H, Total Protein 6.1 L, Albumin 2.4 L, Globulin 3.7, Albumin/Globulin Ratio 0.6 L Micro: Microbiology 08/17/21 19:47 Urine, Clean Catch Urine Culture - Preliminary Culture exhibits no growth. 08/17/21 20:38 Nasal Secretion SARS-CoV-2 Antigen (Rapid) - Final Physical Exam Const no apparent distress Resp normal respiratory effort GI Palpation: tender RUQ Assessment & Plan Assessment/Plan (1) Choledocholithiasis with acute cholecystitis with obstruction: PLAN: Patient had ERCP yesterday with stent placement. Plan for laparoscopic cholecystectomy with cholangiogram today. I once again asked if the patient had any more questions and they were all answered and the patient consents for surgery. Landon Draper MD Pager: [facility] [address] [place] [address], [address] [place] [address] Office:
[2021-08-19] MEDS: 0.9% Saline Lock 10 ML Syringe IV (12:07)
--- NOTE | 2021-08-19 13:05 | PN.HOSP_ITS ---
Subjective Subjective Patient reports that her pain is significantly improved since yesterday. She is going to the OR this afternoon for a lap khushi. Tolerated clear liquids last evening without any issues. No significant plaints at this time. Objective Data Objective Data Vital Signs: Vital Signs Temp Pulse Resp BP Pulse Ox 66.0 F L 80 16 121/77 H 94 08/19/21 12:01 08/19/21 12:01 08/19/21 12:01 08/19/21 12:01 08/19/21 12:01 Oxygen Delivery Method Room Air Weight: 72.8 kg Body Mass Index (BMI) 25.9 Intake & Output: Intake and Output for Last 24 Hours 08/17/21 08/18/21 08/19/21 23:59 23:59 23:59 Intake Total 1116.25 / 1191.25 4254.25 / 4674.25 3520 / 3520 Output Total 50 / 50 800 / 900 100 / 100 Balance 1066.25 / 1141.25 3454.25 / 3774.25 3420 / 3420 Lab / Micro Data Result Diagrams: 08/19/21 05:10 08/19/21 05:10 Labs: Laboratory Results - last 24 hr 08/19/21 05:10: WBC 8.0, RBC 3.94 L, Hgb 11.7 L, Hct 34.9 L, MCV 88.6, MCH 29.7, MCHC 33.5, RDW Std Deviation 39.2, RDW Coeff of Sly 12.1, Plt Count 247, MPV 10.3, Immature Gran % (Auto) 0.900, Neut % (Auto) 79.5 H, Lymph % (Auto) 9.2 L, Teller % (Auto) 9.8, Eos % (Auto) 0.3, Baso % (Auto) 0.3, Absolute Neuts (auto) 6.3, Absolute Lymphs (auto) 0.73 L, Nucleated RBC % 0 08/19/21 05:10: Sodium 136, Potassium 3.3 L, Chloride 102, Carbon Dioxide 26.0, Anion Gap 8, BUN 5 L, Creatinine 0.58, Estim Creat Clear Calc 107.42, Est GFR (MDRD) Af Amer 142, Est GFR (MDRD) Non-Af 117, BUN/Creatinine Ratio 8.7 L, Glucose 91, Calcium 8.1 L, Total Bilirubin 7.10 H, AST 75 H, ALT 291 H, Alkaline Phosphatase 277 H, Total Protein 6.1 L, Albumin 2.4 L, Globulin 3.7, Albumin/Globulin Ratio 0.6 L Micro: Microbiology 08/17/21 19:47 Urine, Clean Catch Urine Culture - Final Mixed Gram Positive Organisms 08/17/21 20:38 Nasal Secretion SARS-CoV-2 Antigen (Rapid) - Final Radiography Diagnostic Testing: Radiology Impression Endo Retro Cholangiopancreatogram 08/18/21 16:00 IMPRESSION: Gallstones. A biliary stent was placed. Electronically Signed: Daniel Elizabeth MD at 8:34 EDT , Service support , Physical Exam Const Constitutional Narrative: Upper middle-aged white female sitting up in bed, nontoxic, appears comfortable Exam Limitations: no limitations Nutritional Appearance: overweight HEENT head/scalp atraumatic and moist oral mucous membranes Head and Scalp: normocephalic Eyes Eyes Narrative: Scleral icterus Resp normal respiratory effort, no retractions, no use of accessory muscles and clear to auscultation bilaterally Auscultation: Negative for crackles, rales, rhonchi or wheezes Cardio regular rate, regular rhythm, S1 normal heart sound, S2 normal heart sound, no murmurs, no rub, no gallops, no clicks and no JVD GI normal to inspection, nondistended, normoactive bowel sounds, soft to palpation and non-distended GI Narrative: Very mild epigastric and right upper quadrant tenderness-much improved since yesterday Palpation: tender Extremity no clubbing, cyanosis or edema Peripheral Pulses: Yes pulses 2+ throughout Skin Skin Narrative: Jaundice with scleral icterus Neuro oriented x3, moves all extremities and no focal motor deficits Neuro Narrative: Sleepy but awakens and is appropriate Sensorium / Orientation: awake and alert Speech: speech normal Psych affect normal Assessment & Plan Assessment/Plan (1) Acute cholangitis: (2) Choledocholithiasis with acute cholecystitis with obstruction: (3) Cholecystitis: (4) Transaminitis: PLAN: Acute choledocholithiasis with acute cholecystitis and obstruction -Continue IV fluids -Continue as needed pain medication -Continue antiemetics -Patient to remain n.p.o. for surgery this afternoon -Tolerated clear liquid diet yesterday afternoon -Continue IV antibiotics -ERCP done on 08/19/2021 with stent placement and biliary sphincterotomy--> anayeli ble to retrieve stone -Per GI patient is to avoid NSAIDs including aspirin for 2 weeks, broad-spect rum antibiotics for 1 week, follow-up in 2 weeks as outpatient -Plan is for cholecystectomy this afternoon -Appreciate GI and general surgery input Acute hyponatremia/hypochloremia -Resolved Hypokalemia -Oral potassium replacement after surgery -repeat lab in a.m. -Check a.m. magnesium level Transaminitis -Secondary to above -Continue to monitor -Improvement with total bilirubin down to 7 from 9.7 and marked decrease in AST and ALT DVT prophylaxis -SCDs CODE STATUS -Full code Charges/Coding Visit Charges Inpatient E&M: 63072 Subs Hosp L2
--- NOTE | 2021-08-19 13:30 | GALL_PTH ---
PATIENT: ODALIS RUTLEDGE LOC: MS3 U#:[id number] AGE/SX: 51/F ROOM: MS314 RE08/17/[address]: Dr. Arlene Viramontes DO : 1970 BED: 1 DIS: 08/20/2021 SPEC #: [id number] RECD: 08/20/21 07:05 STATUS: KIRILL RENacho #: [id number] RAVINDER: 08/19/21 13:[address]: Landon Draper DEPT: SURGICAL PATHOLOGY RECD BY: Glenys Jamil ENTERED: 08/20/21 11:11 SP TYPE: GALLBLADDE OTHR DR: MD Dr. Angelito Olmedo MD Dr. Kathryn Lee, DO Dr. Rahsaan Friend, DO No Primary Care Phys Tissues: Gallbladder, NOS Procedures: Surgery Specimen Level III Comments: @ Ordering doctor for SUIII edited from to @ isabella OLSON at 08/20/21 1513 @ Submitting doctor edited from to @ by RGOOD at 08/20/21 1513 HEADER OPERATION: Laparoscopic cholecystectomy with IOC PRE-OP DIAGNOSIS: Choledocholithiasis with acute cholecystitis with obstruction TISSUE SUBMITTED: Gallbladder MICROSCOPIC DIAGNOSIS Gallbladder, cholecystectomy: Acute and chronic ulcerated and hemorrhagic cholecystitis and cholelithiasis. JUNIOR:santa 08/21/2021 MICROSCOPIC DESCRIPTION Slides are reviewed. GROSS DESCRIPTION Received is one container labeled with the patient's name and designated gallbladder. The specimen consists of a gallbladder measuring 10 cm in length and up to 5 cm in diameter. The external surface is pink-morrissey, smooth and glistening for the most part. Focally it is granular, hemorrhagic and contains cautery artifact. The gallbladder contains hemorrhagic bile and multiple brown-yellow stones measuring in aggregate 4 x 3 x 2 cm and 0.4 to 1 cm in greatest dimension. The mucosa is ulcerated, congested and hemorrhagic. The gallbladder wall measures up to 0.4 cm in thickness. Dog Barber sections from the gallbladder and the cystic duct are submitted in one cassette. / Antolin 08/20/21 TC:2 CPT: 30409
--- NOTE | 2021-08-19 13:30 | RAD_ITS ---
STUDY: INTRAOPERATIVE CHOLANGIOGRAM. REASON FOR EXAM: Female, 51 years old. Laparoscopic cholecystectomy. FLUOROSCOPY TIME (if supplied): ( 31 seconds ) minutes/seconds. A cine loop of 221 images was submitted. TECHNIQUE: Intraoperative cholangiogram was performed by the surgeon. Imaging was submitted. COMPARISON: Comparison is made with prior ERCP dated 08/18/2021. FINDINGS: There is evidence of a dilated cystic duct. Irregular filling defects are seen along the distal portion of the cystic duct as it enters the common hepatic. A stent is seen within the common bile duct. Contrast is seen in the lung the distal portion of the stent. RAD/Cholangiogram/ O R,Initial IMPRESSION: Dilated cystic duct with irregular filling defects in its distal portion. A CBD stent is seen. Electronically Signed: Daniel Elizabeth MD at 9:09 EDT , Service support ,
[2021-08-19] MEDS: Bupivacaine 0.25% 30 ML Vial (14:45)
--- NOTE | 2021-08-19 14:55 | PCM.OPRPT ---
Problems Associated Problem List Diagnoses (1) Cholecystitis: Report of Operation Date of Procedure: 08/19/21 Pre-Operative Diagnosis: Acute cholecystitis with choledocholithiasis Post-Operative Diagnosis: Same Surgery/Procedure Performed:: Laparoscopic cholecystectomy with cholangiogram Specimen's removed: Gallbladder and contents Description of Procedure: After obtaining informed consent patient was brought back to the operating room. General anesthesia was induced. The abdomen was prepped and draped in usual sterile fashion. A small midline incision was made superior to the umbilicus and deepened to the level of fascia. The fascia was elevated and incised. Next the peritoneum was elevated and incised in the same fashion. Finger sweep was performed and the Albert trocar was placed into the abdomen. The balloon was inflated. The abdomen was inflated to 15 mmHg. Next a camera was introduced into the abdomen and the abdomen was inspected. Next under direct visualization three 5-mm ports were placed one subxiphoid and 2 subcostal. Next the gallbladder was elevated and retracted toward the right shoulder. The gallbladder was very inflamed. It was aspirated. The peritoneum was stripped from the gallbladder. The infundibulum was located and retracted laterally. Next the triangle of Calot was dissected and the cystic duct and cystic artery were identified. Cholangiograms were performed. The Gill clamp was used to clamp across the infundibulum and the catheter needle was inserted into the gallbladder. Under fluoroscopy contrast was instilled into the gallbladder and the common duct, cystic duct as well as proximal hepatic ducts were identified. There was good filling of the duodenum. Stent was in good position. There were no filling defects noted in the common bile duct. The clamp was removed as well as the needle and the infundibulum was grasped once more. Three hemolock clips were placed across the cystic duct. The cystic duct was then divided leaving 2 clips on the stump. The cystic artery was clipped and divided in the same fashion. The hook cautery was then used to take the gallbladder off of the gallbladder bed. Hemostasis was obtained. Gallbladder fossa was irrigated and no active bleeding or bile leakage was noted. Next the camera was introduced in the subxiphoid port. An Endopouch bag was placed through the umbilical port and the gallbladder was placed into it. The gallbladder was then removed through the umbilical incision. The camera was then reinserted through the umbilical port. The gallbladder fossa was inspected once more and noted to be hemostatic with no leaking bile. The abdomen was suctioned dry. The 5 mm ports were removed under direct visualization. The umbilical port was then removed and the air was removed from the abdomen. Next using an 0 Vicryl suture the umbilical fascia was closed in a [id number] fashion. The umbilical port site was irrigated local anesthetic was administered to all the incisions. All the incisions were closed with interrupted subcuticular 4-0 Monocryl sutures followed by Steri-Strips and dressings. The patient was awoken and taken to PACU in stable condition. Admit VTE Documentation VTE Mechan Device Prophylaxis: SCD's
[2021-08-19] MEDS: Lactated Ringers 1,000 ML 100 ML IV (15:00)
--- NOTE | 2021-08-19 19:04 | EX.PCM.PN.GI ---
Subjective Subjective Patient is status post ERCP. She had several stones removed during ERCP and had stent placed yesterday. She underwent a cholecystectomy. She did well during the procedure. Objective Data Objective Data Vital Signs: Vital Signs Temp Pulse Resp BP Pulse Ox 97.8 F 70 18 111/79 97 08/19/21 17:06 08/19/21 17:06 08/19/21 17:06 08/19/21 17:06 08/19/21 17:06 Oxygen Flow Rate (L/min) 2 Oxygen Delivery Method Nasal Cannula Weight: 160 lb 7.944 oz Body Mass Index (BMI) 25.9 Intake & Output: Intake and Output for Last 24 Hours 08/17/21 08/18/21 08/19/21 23:59 23:59 23:59 Intake Total 1116.25 / 1191.25 4254.25 / 4674.25 4620 / 4620 Output Total 50 / 50 800 / 900 100 / 100 Balance 1066.25 / 1141.25 3454.25 / 3774.25 4520 / 4520 Lab / Micro Data Result Diagrams: 08/19/21 05:10 08/19/21 05:10 Labs: Laboratory Results - last 24 hr 08/19/21 05:10: WBC 8.0, RBC 3.94 L, Hgb 11.7 L, Hct 34.9 L, MCV 88.6, MCH 29.7, MCHC 33.5, RDW Std Deviation 39.2, RDW Coeff of Sly 12.1, Plt Count 247, MPV 10.3, Immature Gran % (Auto) 0.900, Neut % (Auto) 79.5 H, Lymph % (Auto) 9.2 L, [place] % (Auto) 9.8, Eos % (Auto) 0.3, Baso % (Auto) 0.3, Absolute Neuts (auto) 6.3, Absolute Lymphs (auto) 0.73 L, Nucleated RBC % 0 08/19/21 05:10: Sodium 136, Potassium 3.3 L, Chloride 102, Carbon Dioxide 26.0, Anion Gap 8, BUN 5 L, Creatinine 0.58, Estim Creat Clear Calc 107.42, Est GFR (MDRD) Af Amer 142, Est GFR (MDRD) Non-Af 117, BUN/Creatinine Ratio 8.7 L, Glucose 91, Calcium 8.1 L, Total Bilirubin 7.10 H, AST 75 H, ALT 291 H, Alkaline Phosphatase 277 H, Total Protein 6.1 L, Albumin 2.4 L, Globulin 3.7, Albumin/Globulin Ratio 0.6 L Micro: Microbiology 08/17/21 19:47 Urine, Clean Catch Urine Culture - Final Mixed Gram Positive Organisms 08/17/21 20:38 Nasal Secretion SARS-CoV-2 Antigen (Rapid) - Final Radiography Diagnostic Testing: Radiology Impression Endo Retro Cholangiopancreatogram 08/18/21 16:00 IMPRESSION: Gallstones. A biliary stent was placed. Electronically Signed: Daniel Elizabeth MD at 8:34 EDT , Service support , Physical Exam Const alert General Appearance: cooperative Orientation / Consciousness: oriented to person HEENT hearing grossly normal bilaterally Head and Scalp: normal to inspection Face and Sinus: face symmetric Nose: external nose normal Mouth: oral and palatal mucosa normal Eyes conjunctivae normal General Eye: normal appearance of both eyes Neck full ROM General: normal visual inspection Lymph Lymphatic: no lymphadenopathy noted Chest inspection of chest normal and palpation of chest normal Chest: symmetrical chest wall rise Resp normal respiratory effort Effort and Inspection: able to speak in complete sentences Cardio regular rate GI non-distended Percussion: normal to percussion Rectal Exam: deferred Neuro Speech: speech normal Gait (Neuro): normal gait Assessment & Plan Assessment/Plan (1) Choledocholithiasis with acute cholecystitis with obstruction: PLAN: Patient is status post ERCP and doing well. She is also status post cholecystectomy. Diet can be advanced as per surgery. (2) Acute cholangitis: PLAN: She had ERCP with removal of serosanguineous fluid in the form of pus and multiple stones. She is status post stent placement draining well. Her LFTs continue to improve and her urine is darkening up considerably. Her stools have been normal color. Charges/Coding Visit Charges Inpatient E&M: 11656 Subs Hosp L2
[2021-08-19] MEDS: oxyCODONE 5 MG Tablet PO (21:39)
[2021-08-19] MEDS: Acetaminophen 325 MG Tablet 650 MG PO (21:39)
[2021-08-19] MEDS: 0.9% Normal Saline 1,000 ML 100 ML IV (21:39)
[2021-08-19] MEDS: MELATONIN 3 MG TABLET PO (21:40)
[2021-08-20] MEDS: Acetaminophen 325 MG Tablet 650 MG PO ×2 (02:33→08:28)
[2021-08-20 02:37] VITALS: BP 96/64; PULSE 78; RESP 16; TEMP 36.6; O2SAT 97
[2021-08-20 06:40] LABS: Absolute Neutrophil Count 5.9 X10^3/uL (2.0-7.7); Hematocrit 32.8 % (37-47); Lymphocyte % 8.6 % (19-41); Mean Corp Hgb Conc 33.5 g/dL (32-36); Mean Corpuscular Hgb 29.4 pg (27.0-32.0); Mean Corpuscular Volume 87.7 fL (81-99); Mean Platelet Vol. 10.3 fl (6.2-12.0); Monocyte# 0.44 X10^3/uL; Monocyte% 6.3 % (0-10); NRBC Flagged by Analyzer 0 % (0-5); Neutrophil # 5.91 X10^3/uL (2.7-7.7); Neutrophil % 84.7 % (47-70); POSITIVE DIFFERENTIAL YES; Platelet Count 280 K/mm3 (150-450); RBC Distribution Width CV 12.6 % (11.6-14.6); RBC Distribution Width SD 40.3 fl (35.1-43.9); Red Blood Count 3.74 M/mm3 (4.2-5.4)
[2021-08-20 06:53] LABS: Differential Indicated SCAN CRITERIA MET
[2021-08-20 07:22] VITALS: O2SAT 94
[2021-08-20 08:26] VITALS: BP 101/72; PULSE 57; RESP 16; TEMP 36.8; O2SAT 96
[2021-08-20 09:01] LABS: ALB/GLOB Ratio 0.6 RATIO (0.9-2.4); AST(SGOT) 56 U/L (15-37); Alanine Aminotransfer ALT/SGPT 208 U/L (13-56); Albumin, Serum 2.3 g/dL (3.2-5.0); Alkaline Phosphatase 245 U/L (45-117); Anion Gap 6 (5-15); BUN 6 mg/dL (7-18); BUN/Creat Ratio 10.8 RATIO (10-20); Calcium,Total 8.5 mg/dL (8.5-10.1); Chloride 104 mmol/L (98-107); Creatinine, Serum 0.56 mg/dL (0.55-1.02); EST Glomerular Filtration Rate 122 mL/min (>60); Est Glom Filt Rate - Afr Amer 147 mL/min (>60); Estimated Creatinine Clearance 111.26 ml/min; Globulin 3.8 g/dL (2.2-4.2); Glucose 111 mg/dL (74-106); Potassium 3.7 mmol/L (3.5-5.1); Protein, Total 6.1 g/dL (6.4-8.2); Sodium Level 140 mmol/L (136-145)
--- NOTE | 2021-08-20 09:47 | PN.SURG_ITS ---
Subjective Subjective Patient reports abdominal pain improved after surgery. Tolerating a diet with no nausea or vomiting Objective Data Objective Data Vital Signs: Vital Signs Temp Pulse Resp BP Pulse Ox 98.2 F 57 L 16 101/72 96 08/20/21 08:26 08/20/21 08:26 08/20/21 08:26 08/20/21 08:26 08/20/21 08:26 Oxygen Flow Rate (L/min) 2 Oxygen Delivery Method Room Air Weight: 160 lb 7.944 oz Body Mass Index (BMI) 25.9 Intake & Output: Intake and Output for Last 24 Hours 08/18/21 08/19/21 08/20/21 23:59 23:59 23:59 Intake Total 4254.25 / 4674.25 5825 / 5825 851.67 / 851.67 Output Total 800 / 900 800 / 800 700 / 700 Balance 3454.25 / 3774.25 5025 / 5025 151.67 / 151.67 Lab / Micro Data Result Diagrams: 08/20/21 06:15 08/20/21 08:10 Labs: Laboratory Results - last 24 hr 08/20/21 06:15: WBC 7.0, RBC 3.74 L, Hgb 11.0 L, Hct 32.8 L, MCV 87.7, MCH 29.4, MCHC 33.5, RDW Std Deviation 40.3, RDW Coeff of Sly 12.6, Plt Count 280, MPV 10.3, Immature Gran % (Auto) 0.400, Neut % (Auto) 84.7 H, Lymph % (Auto) 8.6 L, [place] % (Auto) 6.3, Eos % (Auto) 0.0, Baso % (Auto) 0.0, Absolute Neuts (auto) 5.9, Absolute Lymphs (auto) 0.60 L, Nucleated RBC % 0 08/20/21 06:15: Sodium Cancelled, Potassium Cancelled, Chloride Cancelled, Carbon Dioxide Cancelled, Anion Gap Cancelled, BUN Cancelled, Creatinine Cancelled, Estim Creat Clear Calc Cancelled, Est GFR (MDRD) Af Amer Cancelled, Est GFR (MDRD) Non-Af Cancelled, BUN/Creatinine Ratio Cancelled, Glucose Cancelled, Calcium Cancelled, Total Bilirubin Cancelled, AST Cancelled, ALT Cancelled, Alkaline Phosphatase Cancelled, Total Protein Cancelled, Albumin Cancelled, Globulin Cancelled, Albumin/Globulin Ratio Cancelled 08/20/21 08:10: Sodium 140, Potassium 3.7, Chloride 104, Carbon Dioxide 30.0, Anion Gap 6, BUN 6 L, Creatinine 0.56, Estim Creat Clear Calc 111.26, Est GFR (MDRD) Af Amer 147, Est GFR (MDRD) Non-Af 122, BUN/Creatinine Ratio 10.8, Glucose 111 H, Calcium 8.5, Total Bilirubin 3.10 H, AST 56 H, ALT 208 H, Alkaline Phosphatase 245 H, Total Protein 6.1 L, Albumin 2.3 L, Globulin 3.8, Albumin/Globulin Ratio 0.6 L Micro: Microbiology 08/17/21 21:32 Blood Culture (Wb) - Anticubital Left Blood Culture - Preliminary No growth in 48 hours. 08/17/21 20:45 Blood Culture (Wb) - Anticubital Right Blood Culture - Preliminary No growth in 48 hours. 08/17/21 19:47 Urine, Clean Catch Urine Culture - Final Mixed Gram Positive Organisms 08/17/21 20:38 Nasal Secretion SARS-CoV-2 Antigen (Rapid) - Final Radiography Diagnostic Testing: Radiology Impression Cholangiogram 08/19/21 13:30 IMPRESSION: Dilated cystic duct with irregular filling defects in its distal portion. A CBD stent is seen. Electronically Signed: Daniel Elizabeth MD at 9:09 EDT , Service support , Physical Exam Resp normal respiratory effort Cardio regular rate GI soft to palpation and non-tender Assessment & Plan Assessment/Plan (1) Cholecystitis: PLAN: Patient is doing well after laparoscopic cholecystectomy. She may be discharged home today. I would like her to not lift over 20 pounds and she may shower immediately. I gave her postoperative instructions I would like to see her back in 2 weeks. Landon Draper MD Pager: [facility] [address] [place] [address], [address] [place] [address] Office:
[2021-08-20] MEDS: oxyCODONE 5 MG Tablet PO ×2 (11:27→16:05)
--- NOTE | 2021-08-20 11:46 | DS.PCM_ITS ---
Providers Date of Admission: 08/17/21 Primary Care Physician: Jyoti Primary Care Phys Consultations 08/17/21 22:27 Consult: Gastroenterology Routine Consulting Provider: Pedro Taylor Reason for Consult: choledocholithiasis EMERGENT Consult: No Notified: Yes Date Notified: 08/17/21 Time Notified: 20:00 Method of Notification: Page Comments:: notified by MD Consult: General Surgery Routine Consulting Provider: Landon Draper Reason for Consult: cholecystitis EMERGENT Consult: No Notified: Yes Date Notified: 08/17/21 Time Notified: 20:00 Method of Notification: Page Comments:: notified by ED Reason For Visit: ACUTE CHOLECYSTITIS & CHOLANGITIS Diagnosis Discharge Diagnosis (1) Cholecystitis: Status: Acute Code(s): K81.9 - Cholecystitis, unspecified Medications at Discharge Home Medications ciprofloxacin HCl 750 mg PO BID #10 tab 08/20/21 metronidazole 500 mg PO Q8H #15 tab 08/20/21 oxycodone 5 - 10 mg PO Q6H PRN 7 Days #10 tab 08/20/21 Hospital Course Operations cholecystecomy Procedures - (ERCP) Summary of Care Provided Minutes Spent on Discharge: 39 Hospital Course: Mrs. Oliveira is a 51-year-old white female presented to the emergency department [facility] on the evening of 08/17/2021 with a chief complaint of abdominal pain. She reported it was excruciating and was located in the epigastrium and right upper quadrant area. She complained that her pain was quite intense and was associated with nausea and vomiting of bilious looking fluid. Her symptoms were aggravated by food. She reported she took an Epson salts bath which did help improve her pain but it did not maintain. She reported that her urine was brownish and yellow in color but her stool was normal in color. She is moving her bowels and the most recent bowel movement at admission was the day prior to presentation. In the emergency department she was found to have cholestatic hepatitis with jaundice and a leukocytosis. A CT of the abdomen and pelvis showed intra and extra hepatic dilation and the multimedia assistant was contacted for treatment. She was placed on broad-spectrum antibiotics and underwent an ERCP on 08/18/2021. The ERCP showed normal major papilla, filling defect consistent with a stone on her cholangiogram, a single localized biliary stricture in the lower third of the main bile duct which was thought to be related to previous stone and inflamma tory changes, dilation of the upper third of the main bile duct with a stone causing obstruction and choledocholithiasis with partial obstruction noted. Her choledocholithiasis was attempted to be removed by biliary sphincterotomy but this was not accomplished and therefore a stent was inserted. Her pancreatogram was normal. On 08/19/2021 she was taken to the operating room for laparoscopic cholecystectomy with Dr. Draper. She did well with this and had no complications. On the morning of 08/20/2021 she was tolerating a regular diet without issues and was feeling much better. Her cholestatic hepatitis was resolving. Her bilirubin was down to 3 from greater than 7 and her AST on LT had dramatically decreased. There was some pus noted during her ERCP and broad- spectrum antibiotics were recommended for 1 week. She was placed on ciprofloxacin and Flagyl for 5 days after discharge as she had completed 2 days while admitted. She is to avoid aspirin and nonsteroidal anti-inflammatory medications for 2 weeks and follow-up with Dr. Taylor from gastroenterology in 2 weeks. This referral was made. She is also to follow-up with Dr. Draper from general surgery in 2 weeks as well. She was discharged home in stable condition. Prescriptions for Cipro, Flagyl, and oxycodone for a short supply were faxed to the hospital pharmacy to be filled. Discharge diagnoses: Acute cholestatic hepatitis-resolving Acute cholecystitis-status post lap khushi Hyperbilirubinemia-resolving Hypokalemia-resolved Hyponatremia-resolved Hypochloremia-resolved Physical Exam Const alert, oriented x3, no apparent distress and average body habitus Constitutional Narrative: Slightly overweight middle-aged white female sitting up in bed eating some yogurt, appears comfortable, nontoxic, remains jaundiced but improving General Appearance: cooperative, comfortable, well kempt and well developed Orientation / Consciousness: awake Exam Limitations: no limitations Nutritional Appearance: overweight HEENT normocephalic, head/scalp atraumatic, hearing grossly normal bilaterally and moist oral mucous membranes Eyes PERRL, EOMs intact bilaterally and conjunctivae normal Eyes Narrative: Mild scleral icterus but improving Neck no lymphadenopathy, supple and no JVD Resp normal respiratory effort, no retractions, no use of accessory muscles and clear to auscultation bilaterally Auscultation: Negative for crackles, rales, rhonchi or wheezes Cardio regular rate, regular rhythm, S1 normal heart sound, S2 normal heart sound, no murmurs, no rub, no gallops, no clicks and no JVD GI normal to inspection, nondistended, normoactive bowel sounds, soft to palpation and non-distended GI Narrative: Mild tenderness around incision sites without noted drainage, Steri-Strips in place Palpation: tender epigastric, LUQ and Zapata's sign Extremity normal to inspection and no clubbing, cyanosis or edema Skin no rashes or lesions noted, no wounds, skin turgor normal, No no jaundice, no petechiae and no mottling Neuro oriented x3, CN's II-XII intact bilaterally, moves all extremities, no focal motor deficits and no sensory deficits noted Sensorium / Orientation: awake and alert Speech: speech normal Motor Exam: strength 5/5 throughout Psych affect normal Weight / BMI Weight Weight: 72.8 kg Body Mass Index (BMI) 25.9 ABG / Lab / Microbiology Data Result Diagrams: 08/20/21 06:15 08/20/21 08:10 Laboratory: Laboratory Results - last 24 hr 08/20/21 06:15: WBC 7.0, RBC 3.74 L, Hgb 11.0 L, Hct 32.8 L, MCV 87.7, MCH 29.4, MCHC 33.5, RDW Std Deviation 40.3, RDW Coeff of Sly 12.6, Plt Count 280, MPV 10.3, Immature Gran % (Auto) 0.400, Neut % (Auto) 84.7 H, Lymph % (Auto) 8.6 L, [place] % (Auto) 6.3, Eos % (Auto) 0.0, Baso % (Auto) 0.0, Absolute Neuts (auto) 5.9, Absolute Lymphs (auto) 0.60 L, Nucleated RBC % 0 08/20/21 06:15: Sodium Cancelled, Potassium Cancelled, Chloride Cancelled, Carbon Dioxide Cancelled, Anion Gap Cancelled, BUN Cancelled, Creatinine Cancelled, Estim Creat Clear Calc Cancelled, Est GFR (MDRD) Af Amer Cancelled, Est GFR (MDRD) Non-Af Cancelled, BUN/Creatinine Ratio Cancelled, Glucose Cancelled, Calcium Cancelled, Total Bilirubin Cancelled, AST Cancelled, ALT Cancelled, Alkaline Phosphatase Cancelled, Total Protein Cancelled, Albumin Cancelled, Globulin Cancelled, Albumin/Globulin Ratio Cancelled 08/20/21 08:10: Sodium 140, Potassium 3.7, Chloride 104, Carbon Dioxide 30.0, Anion Gap 6, BUN 6 L, Creatinine 0.56, Estim Creat Clear Calc 111.26, Est GFR (MDRD) Af Amer 147, Est GFR (MDRD) Non-Af 122, BUN/Creatinine Ratio 10.8, Glucose 111 H, Calcium 8.5, Total Bilirubin 3.10 H, AST 56 H, ALT 208 H, Alkaline Phosphatase 245 H, Total Protein 6.1 L, Albumin 2.3 L, Globulin 3.8, Albumin/Globulin Ratio 0.6 L Microbiology: Microbiology 08/17/21 21:32 Blood Culture (Wb) - Anticubital Left Blood Culture - Preliminary No growth in 48 hours. 08/17/21 20:45 Blood Culture (Wb) - Anticubital Right Blood Culture - Preliminary No growth in 48 hours. 08/17/21 19:47 Urine, Clean Catch Urine Culture - Final Mixed Gram Positive Organisms 08/17/21 20:38 Nasal Secretion SARS-CoV-2 Antigen (Rapid) - Final Radiography Diagnostic Testing: Radiology Impression Cholangiogram 08/19/21 13:30 IMPRESSION: Dilated cystic duct with irregular filling defects in its distal portion. A CBD stent is seen. Electronically Signed: Daniel Elizabeth MD at 9:09 EDT , Service support , D/C Instructions Discharge Diet: Soft diet (Advance as tolerated to regular diet) Discharge Activity: Return to Normal Activity (Is tall and) and May Shower May resume sexual activity in: 1-2 weeks Call your doctor if your incision/area has: Continuous Slow Oozing, Sudden Increased Bleeding, Increased Pain/ Swelling, Increased Redness, Foul Smelling Discharge and Swelling at the incision site Call your doctor if you observe: Fever of 101 or Higher Cleanse incision/area with: Soap & Water and Keep Dressing Clean & Dry Meaningful Use Info Meaningful Use Diagnoses (Choose all that apply): None applicable Discharge Plan Admission Admit Date/Time: 08/17/21 21:45 Primary Reason for Your Visit: Abdominal pain-choledocholithiasis with acute biliary hepatitis and acute c Attending Provider: Arlene Viramontes Primary Care Provider: Care Physician,No Primary Consulting Providers: Pedro Taylor ; Landon Draper Discharge Orders/Prescriptions Prescriptions: New oxycodone 5 mg Tablet 5 - 10 mg PO Q6H PRN (Reason: pain) 7 Days Qty: 10 RF: 0 ciprofloxacin HCl 750 mg tablet 750 mg PO BID Qty: 10 RF: 0 metronidazole 500 mg tablet 500 mg PO Q8H Qty: 15 RF: 0 Referrals / Follow Up: Landon Draper MD [STAFF PHYSICIAN] - Within 2 Weeks Pedro Taylor DO [STAFF PHYSICIAN] - Within 2 Weeks Care Physician,No Primary [Primary Care Provider] - Disposition Disposition (needs filled in before D/C Order can be placed): Home, Self Care Charges/Coding Visit Charges Inpatient E&M: 74736 Disch Hosp
[2021-08-20 14:04] VITALS: BP 91/59; PULSE 64; RESP 14; TEMP 36.7; O2SAT 97
--- NOTE | 2021-08-20 15:00 | PCM.DC ---
Discharge Instructions Diet Discharge Diet: Soft diet (Advance as tolerated to regular diet) Activity May resume sexual activity in: 1-2 weeks Dressing / Incision Call your doctor if your incision/area has: Continuous Slow Oozing, Sudden Increased Bleeding, Increased Pain/ Swelling, Increased Redness, Foul Smelling Discharge and Swelling at the incision site Call your doctor if you observe: Fever of 101 or Higher Cleanse incision/area with: Soap & Water and Keep Dressing Clean & Dry Follow Up Care Test Results: Test results from this visit will be discussed in further detail at your follow-up appointment, if applicable. Discharge Plan Admission Admit Date/Time: 08/17/21 21:45 Primary Reason for Your Visit: Abdominal pain-choledocholithiasis with acute biliary hepatitis and acute c Attending Provider: Arlene Viramontes Primary Care Provider: Care Physician,No Primary Consulting Providers: Pedro Taylor ; Landon Draper Discharge Orders/Prescriptions Prescriptions: New oxycodone 5 mg Tablet 5 - 10 mg PO Q6H PRN (Reason: pain) 7 Days Qty: 10 RF: 0 ciprofloxacin HCl 750 mg tablet 750 mg PO BID Qty: 10 RF: 0 metronidazole 500 mg tablet 500 mg PO Q8H Qty: 15 RF: 0 Referrals / Follow Up: Landon Draper MD [STAFF PHYSICIAN] - Within 2 Weeks Pedro Taylor DO [STAFF PHYSICIAN] - Within 2 Weeks Care Physician,No Primary [Primary Care Provider] - Disposition Disposition (needs filled in before D/C Order can be placed): Home, Self Care
[2021-08-20 16:49] VITALS: BP 113/68; PULSE 60; RESP 16; TEMP 36.6; O2SAT 96
== END 2021-08-20 18:05 | disposition home or self-care (01) | DRG 418 ==
LOC: ED 20:14 → MS3 21:56
PROVIDERS: Internal Medicine Gastroenterology; Surgery; Admitting Provider Hospitalist; Emergency Provider Emergency Medicine; Visit Provider Internal Medicine
PROC: 0F798DZ Dilation of Common Bile Duct with Intraluminal Device, Via Natural or Artificial Opening Endoscopic (ICD-10-PCS; CPT 43260; principal; 2021-08-18 15:30)
PROC: 0FT44ZZ Resection of Gallbladder, Percutaneous Endoscopic Approach (ICD-10-PCS; CPT 47610; principal; 2021-08-19 13:10)
DX: K80.67 Calculus of gallbladder and bile duct with acute and chronic cholecystitis with obstruction (principal); E87.1 Hypo-osmolality and hyponatremia; D18.03 Hemangioma of intra-abdominal structures; K75.89 Other specified inflammatory liver diseases; E87.6 Hypokalemia; E87.8 Other disorders of electrolyte and fluid balance, not elsewhere classified
CPT/HCPCS: 36415; 74177; 74300; 74330; 76000; 76705; 80048; 80053; 80076; 81001; 83605; 83690; 85025; 87040; 87086; 87088; 87426; 88304; 93005; 99283; J7030; J7040; J7050; J7120; Q9967; A4216; C1769; J2405

== ENCOUNTER 2021-10-02 16:23 | Emergency (ER) | payer OTHER, SELFPAY ==
[2021-10-02 16:24] VITALS: BP 100/71; PULSE 88; RESP 16; TEMP 37.2; O2SAT 96; BMI 24.2
--- NOTE | 2021-10-02 17:55 | CT_ITS ---
STUDY: CT ABDOMEN AND PELVIS WITHOUT CONTRAST REASON FOR EXAM: Female, 51 years old. Right flank pain. Fever. Postop cholecystectomy with biliary duct stenting on August 18. Lower back pain. RADIATION DOSAGE (If Supplied By Facility): CTDIvol = ( 6.77 ) mGy, DLP = ( 317.76 ) mGycm TECHNIQUE: Transaxial images were obtained from the dome of the diaphragm to the symphysis pubis without oral contrast, and without intravenous contrast. Sagittal and coronal images were reconstructed. Individualized dose optimization techniques were used for this CT. COMPARISON: 08/17/2021. FINDINGS: Small patchy infiltrate posteriorly in the left lung base. The lungs are otherwise clear. The visualized portions of the heart are within normal limits. Normal liver. Status post cholecystectomy. There is mild pneumobilia in the left liver. There is a stent in the distal CBD extending into the duodenum. There is no biliary ductal dilatation. Normal spleen. Normal pancreas. Normal bilateral adrenal glands. Normal right kidney. Normal left kidney. Normal ureters. Normal visualized stomach. Normal small intestine. Scattered diverticuli without acute inflammatory change. The appendix is visualized and appears normal. Normal abdominal aorta. Normal inferior vena cava. Normal retroperitoneum. Normal urinary bladder. Normal uterus and adnexa. No pelvic lymphadenopathy. No free air or free fluid is seen within the peritoneal cavity. Umbilical hernia of omental fat. The abdominal wall is otherwise unremarkable. Normal osseous structures. CT/Abdomen/Pelvis without Cont IMPRESSION: 1. Status post cholecystectomy when compared to the prior CT. There is evidence of a stent in the distal CBD with mild pneumobilia in the nondependent left intrahepatic bile ducts. 2. No evidence of acute intra-abdominal or pelvic process. 3. Small patchy infiltrate in the left lower lobe. Electronically Signed: Sunday Hutchins DO at 19:08 EST Tel [phone], Service support ,
[2021-10-02 18:46] LABS: Absolute Neutrophil Count 4.6 X10^3/uL (2.0-7.7); Basophil# 0.04 X10^3/uL; Basophil% 0.7 % (0-1); Hematocrit 39.9 % (37-47); Hemoglobin 13.6 g/dL (12.0-15.0); Lymphocyte % 13.3 % (19-41); Mean Corp Hgb Conc 34.1 g/dL (32-36); Mean Corpuscular Hgb 29.7 pg (27.0-32.0); Mean Corpuscular Volume 87.1 fL (81-99); Mean Platelet Vol. 10.2 fl (6.2-12.0); Monocyte# 0.53 X10^3/uL; Monocyte% 8.8 % (0-10); NRBC Flagged by Analyzer 0 % (0-5); Neutrophil # 4.64 X10^3/uL (2.7-7.7); Neutrophil % 76.9 % (47-70); Platelet Count 228 K/mm3 (150-450); RBC Distribution Width CV 12.6 % (11.6-14.6); RBC Distribution Width SD 40.1 fl (35.1-43.9); Red Blood Count 4.58 M/mm3 (4.2-5.4)
--- NOTE | 2021-10-02 18:55 | CM.ED ---
SW Note Referral Source: Case Find Referral Reason: No Primary Care Physician (PCP) SW reviewed chart and noted that patient has no PCP. SW provided patient with list of [facility] and [facility] Physician List for reference. No other issues or concerns voiced at this time. SW remains available for any additional needs. Plan: Provided patient with PCP information Rissa CHO
[2021-10-02 19:10] LABS: Anion Gap 7 (5-15); BUN 6 mg/dL (7-18); BUN/Creat Ratio 6.9 RATIO (10-20); Calcium,Total 9.4 mg/dL (8.5-10.1); Chloride 102 mmol/L (98-107); Creatinine, Serum 0.87 mg/dL (0.55-1.02); EST Glomerular Filtration Rate 73 mL/min (>60); Est Glom Filt Rate - Afr Amer 88 mL/min (>60); Estimated Creatinine Clearance 71.62 ml/min; Glucose 105 mg/dL (74-106); Potassium 3.5 mmol/L (3.5-5.1); Sodium Level 136 mmol/L (136-145)
[2021-10-02 19:29] LABS: Bacteria 0 SEEN /hpf (None Seen); Red Blood Cells-Urine 0 SEEN /hpf (0-5)
[2021-10-02 19:36] LABS: Color, Urine Yellow (Yellow); Glucose, Dipstick Normal (Normal); Leukocyte Esterase-Dipstick 25 /ul (Negative); Nitrite-Dipstick Negative (Negative); Occult Blood-Urine 10 /ul (Negative); Protein-Dipstick Negative (Negative); Urine Bilirubin Dipstick Negative (Negative); Urine Clarity Clear (Clear); Urine Urobilinogen Normal (Normal)
[2021-10-02 19:43] LABS: Ketone-Dipstick 150 mg/dl (Negative); Mucous, Urine 2+ /hpf (<or=2+); Squamous Epithelial Cells - UA 0-5 SEEN /hpf (5-10); White Blood Cells 0-5 SEEN /hpf (0-5)
--- NOTE | 2021-10-02 20:49 | EX.ED.DYSGE1 ---
HPI History of Present Illness Chief Complaint: Fever Informant: patient Onset/Context/Timing Onset: Yesterday Context: Gradual Onset Timing: Continuous Quality: Burning Location: Right lower back Worsened by: Nothing Relieved by: Epson salt bath Narrative Narrative: Patient presents with a fever that began yesterday. Patient states it has been waxing and waning since yesterday. Patient states she has been having some burning pain in her right lower back area. Patient states her fever and back pain improved after taking an Epson salt bath. Patient states she had a cholecystectomy done 6 weeks ago. Patient states she had an ERCP done prior to that. Patient admits to nausea but denies any vomiting. Patient states her fever was up to 102.7 at home. [facility] Medical History Abdominal pain Acute cholangitis Back pain Bile reflux gastritis Biliary stricture Cholecystitis Choledocholithiasis Choledocholithiasis with acute cholecystitis with obstruction Febrile History of biliary stent insertion Home Medications NK 10/02/21 [History Last Taken Unknown] Allergy/AdvReac Type Severity Reaction Status Date / Time No Known Allergies Allergy Verified 10/02/21 16:26 Surgical History H/O hernia repair Hx laparoscopic cholecystectomy (~08/2021) S/P ERCP Social History Smoking Status: Never smoker ROS ROS ED Constitutional Constitutional ED: Reports fever(s); Denies chills Eyes Eyes: Denies blurry vision or change in vision ENT ENT ED: Denies rhinorrhea or sore throat Cardiovascular Cardiovascular: Denies chest pain or palpitations Respiratory/Chest Respiratory/Chest: Denies cough or dyspnea Gastrointestinal Gastrointestinal: Reports nausea; Denies vomiting Genitourinary Genitourinary ED: Denies dysuria or hematuria Musculoskeletal Musculoskeletal: Reports neck pain; Denies back pain Integumentary Denies abscess or rash Neurologic Neurologic: Reports headache(s); Denies weakness Allergic/Immunologic Allergic/Immunologic ED: Denies mouth swelling or urticaria EXAM Physical Exam Const Vital Signs: 10/02/21 16:24 Temperature 99 F Temperature Source Oral Pulse Rate 88 Respiratory Rate 16 Blood Pressure 100/71 Blood Pressure Mean 80 Pulse Ox 96 Oxygen Delivery Method Room Air Positive well nourished and well developed General Appearance ED: well developed HEENT Reports moist mucous membranes Neck supple and no JVD Resp normal respiratory effort Auscultation: diminished lung sounds bilateral lower Cardio regular rate, regular rhythm and no murmurs GI normal to inspection, nondistended, normoactive bowel sounds Palpation: soft and tender LUQ; Negative for guarding or rebound tenderness present Extremity normal to inspection General Extremety ED: Negative for edema or tenderness General Extremity: Negative for edema Neuro oriented x3, CN's II-XII intact bilaterally and no sensory deficits noted Sensorium / Orientation: alert Motor Exam: strength 5/5 throughout Psych mental status grossly normal Skin no rashes or lesions noted MDM MDM MDM Narrative Medical decision making narrative: CBC was within normal limits. Basic metabolic profile was within normal limits. Urinalysis does not show any evidence of urinary tract infection. CT scan of the abdomen pelvis was obtained. There is no acute intra-abdominal process noted. There is a small patchy infiltrate in the left lower lobe. These were interpreted by the radiologist and reviewed by myself. Patient was given a dose of Zithromax here. Patient was given a prescription for Zithromax. Patient was instructed to drink plenty of fluids. Patient was instructed to continue Tylenol and ibuprofen as needed for any fevers. Patient was instructed to follow-up with her primary care physician in 5 to 7 days. Patient understood and was agreeable with the plan. All questions were answered. Lab Data Attestation: I reviewed the patient's lab results. Labs: Laboratory Results - last 24 hr 10/02/21 10/02/21 10/02/21 18:20 18:20 19:20 WBC 6.0 RBC 4.58 Hgb 13.6 Hct 39.9 MCV 87.1 MCH 29.7 MCHC 34.1 RDW Std Deviation 40.1 RDW Coeff of Sly 12.6 Plt Count 228 MPV 10.2 Immature Gran % (Auto) 0.300 Neut % (Auto) 76.9 H Lymph % (Auto) 13.3 L [place] % (Auto) 8.8 Eos % (Auto) 0.0 Baso % (Auto) 0.7 Absolute Neuts (auto) 4.6 Absolute Lymphs (auto) 0.80 L Nucleated RBC % 0 Sodium 136 Potassium 3.5 Chloride 102 Carbon Dioxide 27.0 Anion Gap 7 BUN 6 L Creatinine 0.87 Estim Creat Clear Calc 71.62 Est GFR (MDRD) Af Amer 88 Est GFR (MDRD) Non-Af 73 BUN/Creatinine Ratio 6.9 L Glucose 105 Calcium 9.4 Urine Color Yellow Urine Clarity Clear Urine pH 5.0 Ur Specific [place] 1.020 Urine Protein Negative Urine Glucose (UA) Normal Urine Ketones 150 A* Urine Occult Blood 10 H Urine Nitrite Negative Urine Bilirubin Negative Urine Urobilinogen Normal Ur Leukocyte Esterase 25 H Urine RBC 0 SEEN Urine WBC 0-5 SEEN Ur Squamous Epith Cells 0-5 SEEN Urine Bacteria 0 SEEN Urine Mucus 2+ Radiography Diagnostic Testing: Clinical Impression(s) from Imaging Studies Abdomen/Pelvis CT 10/02/21 17:55 IMPRESSION: 1. Status post cholecystectomy when compared to the prior CT. There is evidence of a stent in the distal CBD with mild pneumobilia in the nondependent left intrahepatic bile ducts. 2. No evidence of acute intra-abdominal or pelvic process. 3. Small patchy infiltrate in the left lower lobe. Electronically Signed: Sunday Hutchins DO at 19:08 EST Tel [phone], Service support , Discharge Plan Triage Chief Complaint: Fever ED Provider: Vitaly Tipton Dx/Rx/DC Orders Clinical Impression: Pneumonia Instructions: ED Pneumonia (Adult) Prescriptions: No Action NK RF: 0 Primary Care Provider: Care Physician,No Primary Referrals: Obdulio Stiles DO [NON-STAFF] - 3-5 Days Care Physician,No Primary [Primary Care Provider] - Disposition Disposition: Home, Self Care
[2021-10-02] MEDS: Azithromycin 250 MG Tablet 500 MG PO (21:07)
[2021-10-02 21:12] VITALS: BP 99/40; PULSE 79; RESP 18; O2SAT 95
== END 2021-10-02 21:12 | disposition home or self-care (01) ==
PROVIDERS: Emergency Medicine; Emergency Provider Emergency Medicine
DX: J18.9 Pneumonia, unspecified organism (principal); M54.50 Low back pain, unspecified; Z87.19 Personal history of other diseases of the digestive system; Z90.49 Acquired absence of other specified parts of digestive tract
CPT/HCPCS: 74176; 80048; 81001; 85025; 99282; A4216

== ENCOUNTER → 2021-10-02 | Outpatient (CLI) | payer OTHER, SELFPAY ==
[2021-10-02 18:13] LABS: Mucous, Urine 0 SEEN /hpf (<or=2+); Red Blood Cells-Urine 0 SEEN /hpf (0-5); White Blood Cells 0 SEEN /hpf (0-5)
[2021-10-02 18:19] LABS: Color, Urine Yellow (Yellow); Glucose, Dipstick Normal (Normal); Ketone-Dipstick Negative (Negative); Leukocyte Esterase-Dipstick Negative /ul (Negative); Nitrite-Dipstick Negative (Negative); Occult Blood-Urine Negative /ul (Negative); Protein-Dipstick Negative (Negative); Specific Gravity, Urine 1.005 (1.002-1.030); Urine Bilirubin Dipstick Negative (Negative); Urine Clarity Clear (Clear); Urine Urobilinogen Normal (Normal)
[2021-10-02 19:17] LABS: Bacteria RARE /hpf (None Seen); Squamous Epithelial Cells - UA 0-5 SEEN /hpf (5-10)
== END | disposition home or self-care (01) ==
PROVIDERS: Visit Provider Physician Assistant
DX: M54.9 Dorsalgia, unspecified (principal)
CPT/HCPCS: 81001; 87086; 87088

== ENCOUNTER 2021-10-27 10:37 | Day surgery (SDC) | payer SELFPAY, OTHER ==
[2021-10-27] VITALS (7 sets, daily range): BP systolic 106–121; BP diastolic 73–87; PULSE 55–85; RESP 16; TEMP 35.8–36.7; O2SAT 94–100; BMI 24.7
--- NOTE | 2021-10-27 10:47 | EKG12_ITS ---
Test Reason : PRE OP Blood Pressure : / mmHG Vent. Rate : 061 BPM Atrial Rate : 061 BPM P-R Int : 144 ms QRS Dur : 082 ms QT Int : 406 ms P-R-T Axes : 057 042 028 degrees QTc Int : 408 ms Normal sinus rhythm Nonspecific ST abnormality Abnormal ECG Confirmed by AURA SAAB, MILLI ([id number]), digital editor PAMELA FERREIRA ([id number]) on 11/13/2021 8:33:20 AM Referred By: Pedro Taylor Confirmed By:MILLI CHAVARRIA MD
[2021-10-27] MEDS: Lactated Ringers 1,000 ML 30 ML IV ×2 (11:20→13:45)
--- NOTE | 2021-10-27 11:45 | RAD_ITS ---
INDICATION: PAIN EXAMINATION/TECHNIQUE: 6 spot intraoperative films were provided for interpretation. Total Fluoroscopic Time: 1:44 minutes/seconds. COMPARISON: 10/02/2021.. FINDINGS: Images demonstrate the ERCP probe with cannulation of the ampulla, contrast injection into the bile ducts followed by wire insertion and balloon insertion. No radiologist was present for the procedure, please refer to operative report for details. RAD/ERCP Biliary Only IMPRESSION: Please refer to operative report for details. Electronically Signed: Mane Álvarez MD at 14:54 EST Tel , Service support ,
--- NOTE | 2021-10-27 12:55 | HP.PCM_ITS ---
History and Physical Date of Admission: 10/27/21 [facility] Medical History (Updated 10/21/21 @ 12:31 by Edilma Sheppard) Abdominal pain Acute cholangitis Back pain Bile reflux gastritis Biliary stricture Cholecystitis Choledocholithiasis Choledocholithiasis with acute cholecystitis with obstruction Febrile History of biliary stent insertion Hx of bacterial pneumonia Non-smoker Wears glasses Surgical History (Updated 10/21/21 @ 12:31 by Edilma Sheppard) H/O hernia repair History of ERCP History of laparoscopic cholecystectomy Hx laparoscopic cholecystectomy (~08/2021) S/P ERCP Social History Smoking Status: Never smoker HPI HPI Chief Complaint: post khushi Details: ODALIS RUTLEDGE, is a 51 F who presents to the office today for Last visit 09/02/21 for continued evaluation of bile reflux gastritis, choledocholitiasis, biliary structure. Symptoms last visit included upset stomach triggered by food and bloating. ERCP performed 08/18/21 with stent placement. Bile reflux gastritis ? suspect many symptoms related to this due to recent cholecystectomy with duct stent that likely diverting bile back to her stomach. No diarrhea r/t placement of biliary stent. Recommended digestive enzymes. Choledocholitiasis ? s/p upon removal via ERCP. Biliary stricture ? ERCP with biliary stent placed on 08/18/21. She [facility]21 due to fever, chills and lower back pain. Urinalysis performed and encouraged to visit [facility] ED. Urinalysis showed no unremarkable and CT abd/pel performed in ED with finding of patchy infiltrate in left lower lobe. Discharged home with antibiotics. States she is doing well since last visit. Reports pneumonia early October and has been treated and feels much better. She is scheduled for ERCP Wednesday for stent removal. ROS Const Constitutional: No anorexia, fatigue, fever(s), weight change or sleep problems Eyes Eyes: No change in vision ENT ENT: No abnormal hearing, difficulty swallowing, mouth lesions, tongue swelling or throat swelling Resp Respiratory: No cough or shortness of breath Cardio Cardiology: No chest pain at rest, chest pain with exertion, shortness of breath or dyspnea on exertion Gastro GI: No difficulty swallowing Genitourinary-Female: No difficulty urinating or burning urination Musc Musculoskeletal: No joint pain, joint swelling, muscle weakness or decreased muscle mass Skin Skin: No hair loss in leg, yellowing of the eye, itchy eyes, rash, skin ulcer or skin swelling Neuro Neurology: No abnormal hearing, abnormal movements, confusion, unsteady gait/balance or memory loss Psych Psychiatric: No anxiety, No confusion and No memory loss Endo Endocrine: No fatigue or weight change Aller/Imm Allergy/Immunologic: No itchy eyes, throat swelling or tongue swelling Cheko/Lymp Hematologic/Lymphatic: No easy bleeding, easy bruising or enlarged lymph nodes Exam Const General: cooperative and comfortable Nutritional Appearance: average body habitus and well nourished HENMT Head: normal to inspection Ears: hearing grossly normal bilaterally Nose: external nose normal Face and sinus: normal facial exam Mouth: oral mucosae normal Throat: posterior oropharynx normal Eyes General: appearance normal, both eyes and all related structures Neck Neck: normal visual inspection Chest Chest palpation & inspection: normal inspection of the chest and normal palpation of entire chest wall Resp Effort & Inspection: normal respiratory effort Auscultation: Bilateral: Clear to Auscultation Cardio Palpation: normal PMI Rate: regular rate Rhythm: regular rhythm GI Inspection: normal to inspection Auscultation: normal bowel sounds Percussion: normal to percussion Palpation: no hepatosplenomegaly Skin General: no rashes or lesions noted Neuro General: patient alert Extrem General: normal to inspection Psych Affect: normal affect Quality Reporting Tobacco Screening ([facility] [address]) Smoking Status: Never smoker Assessment and Plan Assessment and Plan (1) Abdominal pain: Status: Acute (2) Choledocholithiasis: Status: Acute Plan - Dr. Vasquez Friend, DO: Patient should have her cholesterol checked in particular triglyceride level with the high amount of stones that were removed during her cholecystectomy and/or an ERCP. (3) Biliary stricture: Status: Acute Plan - Dr. Vasquez Friend, DO: Patient will undergo a ERCP with stent removal or exchange. She was explained alternatives, risk, benefits including outstanding bleeding, infection, sepsis, perforation, need for emergent . She will have an ASA of 1. We discussed the possibility of her going ursodiol. For now we will take any medicines and to see how this goes. She should be low risk for recurrent stone on deve lopment. I have re-examined the patient. There are no clinical changes since date of exam.
--- NOTE | 2021-10-27 17:35 | OP.CCLET_ITS ---
10/27/2021 No Primary Care Physician Re : ERCP procedure for Mercedez Oliveira Dear Care Physician This procedure was performed on Wednesday, October 27, 2021. My impressions and recommendations are as follows: Impressions : - The major papilla appeared normal. - A filling defect consistent with a stone was seen on the cholangiogram. - Choledocholithiasis was found. Complete removal was accomplished by biliary sphincterotomy and balloon extraction. - A biliary sphincterotomy was performed. - The biliary tree was swept. - One stent was removed from the biliary tree. Recommendations : My findings are described in the full procedure note, which is enclosed. If I can be of further assistance, please feel free to contact me at . Sincerely, Pedro Taylor, 10/27/2021 5:34:49 PM This report has been signed electronically.
--- NOTE | 2021-10-27 17:35 | OP.ERCP_ITS ---
Patient Name: Mercedez Oliveira Procedure Date: 10/27/2021 1:05 PM Date of : 1970 Age: 51 Procedure: ERCP Indications: Abdominal pain of suspected biliary origin Providers: Pedro Taylor DO Medicines: See the Anesthesia note for documentation of the administered medications Patient Profile: This is a 51 year old female. Refer to note in patient chart for documentation of history and physical. She is status post laparoscopic cholecystectomy within the past three months. She is status post ERCP for biliary evaluation and ERCP for stone removal within the past three months. Complications: No immediate complications. Procedure: Pre-Anesthesia Assessment: - Prior to the procedure, a History and Physical was performed, and patient medications and allergies were reviewed. The patient is competent. The risks and benefits of the procedure and the sedation options and risks were discussed with the patient. All questions were answered and informed consent was obtained. Patient identification and proposed procedure were verified by the physician in the pre-procedure area. Mental Status Examination: alert and oriented. Airway Examination: normal oropharyngeal airway and neck mobility. Respiratory Examination: clear to auscultation. CV Examination: normal. Prophylactic Antibiotics: The patient does not require prophylactic antibiotics. Prior Anticoagulants: The patient has taken no previous anticoagulant or antiplatelet agents. ASA Grade Assessment: II - A patient with mild systemic disease. After reviewing the risks and benefits, the patient was deemed in satisfactory condition to undergo the procedure. The anesthesia plan was to use deep sedation / analgesia. Immediately prior to administration of medications, the patient was re-assessed for adequacy to receive sedatives. The heart rate, respiratory rate, oxygen saturations, blood pressure, adequacy of pulmonary ventilation, and response to care were monitored throughout the procedure. The physical status of the patient was re-assessed after the procedure. After obtaining informed consent, the scope was passed under direct vision. Throughout the procedure, the patient's blood pressure, pulse, and oxygen saturations were monitored continuously. The [id number] endoscope was introduced through the mouth, and advanced to the duodenum and used to inject contrast into the bile duct. The ERCP was accomplished without difficulty. The patient tolerated the procedure well. Moderate Sedation: Moderate (conscious) sedation was administered by the endoscopy nurse and supervised by the endoscopist. The patient's oxygen saturation, heart rate, blood pressure and response to care were monitored. Total physician intraservice time was 15 minutes. Scope In: 1:32:23 PM Scope Out: 1:51:55 PM Total Procedure Duration Time 0 hours 19 minutes 32 seconds Findings: A biliary stent was visible on the cigar packing examiner film. The esophagus was successfully intubated under direct vision. The scope was advanced to a normal major papilla in the descending duodenum without detailed examination of the pharynx, larynx and associated structures, and upper GI tract. The upper GI tract was grossly normal. A straight Roadrunner wire was passed into the biliary tree. The short-nosed traction sphincterotome was passed over the guidewire and the bile duct was then deeply cannulated. Contrast was injected. I personally interpreted the bile duct images. There was brisk flow of contrast through the ducts. The lower third of the main bile duct contained filling defect(s) thought to be a stone. Opacification of the main bile duct was successful. The maximum diameter of the ducts was 8 mm. A 5 mm biliary sphincterotomy was made with a braided traction (standard) sphincterotome using ERBE electrocautery. The sphincterotomy oozed blood. To discover objects, the biliary tree was swept with a 12 mm balloon starting at the upper third of the main bile duct. Two stones were removed. No stones remained. One stent was removed from the biliary tree using a 15 mm balloon. The major papilla was normal. Impression: - The major papilla appeared normal. - A filling defect consistent with a stone was seen on the cholangiogram. - Choledocholithiasis was found. Complete removal was accomplished by biliary sphincterotomy and balloon extraction. - A biliary sphincterotomy was performed. - The biliary tree was swept. - One stent was removed from the biliary tree. Procedure Code(s): --- Professional --- 37402, Endoscopic retrograde cholangiopancreatography (ERCP); with removal of foreign body(s) or stent(s) from biliary/pancreatic duct(s) 87024, Endoscopic retrograde cholangiopancreatography (ERCP); with removal of calculi/debris from biliary/pancreatic duct(s) 68190, Endoscopic retrograde cholangiopancreatography (ERCP); with sphincterotomy/papillotomy 73613, 59, Moderate sedation services provided by the same physician or other qualified health patient care nursing assistant performing the diagnostic or therapeutic service that the sedation supports, requiring the presence of an independent trained observer to assist in the monitoring of the patient's level of consciousness and physiological status; initial 15 minutes of intraservice time, patient age 5 years or older CPT copyright 2017 [employer]. All rights reserved. The codes documented in this report are preliminary and upon enrober tender review may be revised to meet current compliance requirements. Pedro Taylor DO 10/27/2021 5:34:49 PM This report has been signed electronically. Number of Addenda: 0 Note Initiated On: 10/27/2021 1:05 PM
== END 2021-10-27 16:37 | disposition home or self-care (01) ==
LOC: EN 10:42 → AC 10:42
PROVIDERS: Referring Provider Internal Medicine Gastroenterology; Visit Provider Internal Medicine Gastroenterology
PROC: (CPT 43260; principal; 2021-10-27 11:15)
DX: K80.50 Calculus of bile duct without cholangitis or cholecystitis without obstruction (principal); Z46.59 Encounter for fitting and adjustment of other gastrointestinal appliance and device
CPT/HCPCS: 43262; 43264; 43275; 74328; 76000; 87426; 93005; J7120; J2405

== ENCOUNTER 2022-02-04 09:25 | Outpatient (CLI) | payer OTHER, SELFPAY ==
[2022-02-04 11:45] LABS: Cholesterol 178 mg/dL (200); High Density Lipoprotein 52 mg/dL; Triglycerides 138 mg/dL; Very Low Density Lipoprotein 28 mg/dL (5-40)
== END 2022-02-04 23:59 | disposition home or self-care (01) ==
LOC: LAB 09:26
PROVIDERS: Referring Provider Internal Medicine Gastroenterology; Visit Provider Internal Medicine Gastroenterology
DX: K83.1 Obstruction of bile duct (principal)
CPT/HCPCS: 36415; 80061

== ENCOUNTER → 2022-06-01 | Outpatient (CLI) | payer OTHER, SELFPAY ==
[2022-06-01 13:57] LABS: Cholesterol 182 mg/dL (200); High Density Lipoprotein 52 mg/dL; Triglycerides 136 mg/dL; Very Low Density Lipoprotein 27 mg/dL (5-40)
== END | disposition home or self-care (01) ==
LOC: LAB 11:55
PROVIDERS: Referring Provider Internal Medicine Gastroenterology; Visit Provider Internal Medicine Gastroenterology
DX: K80.50 Calculus of bile duct without cholangitis or cholecystitis without obstruction (principal); K29.60 Other gastritis without bleeding
CPT/HCPCS: 36415; 80061

== ENCOUNTER 2025-02-09 15:06 | Emergency (ER) | payer OTHER, SELFPAY ==
[2025-02-09 15:06] VITALS: PULSE 67; RESP 16; TEMP 36.5; O2SAT 97; BMI 25.8
[2025-02-09 15:19] VITALS: BP 114/81; PULSE 62; O2SAT 96
--- NOTE | 2025-02-09 15:25 | EKG12_ITS ---
Test Reason : Blood Pressure : */* mmHG Vent. Rate : 64 BPM Atrial Rate : 64 BPM P-R Int : 144 ms QRS Dur : 84 ms QT Int : 424 ms P-R-T Axes : 80 31 33 degrees QTcB Int : 437 ms Normal sinus rhythm Possible Left atrial enlargement Nonspecific ST abnormality Abnormal ECG Confirmed by Golden Carvajal ([id number]), school photograph editor PAMELA FERREIRA ([id number]) on 02/12/2025 6:53:35 AM Referred By: Confirmed By: Golden Carvajal
--- NOTE | 2025-02-09 15:25 | ED.VIS.GI ---
HPI HPI - GI History of Present Illness Chief Complaint: Abd Pain Detail of Chief Complaint: Abdominal pain Informant: patient Narrative Narrative: Patient presents with abdominal pain that she has had off-and-on for the last 5 days. Patient states the pain is typically in the upper abdomen and at times radiates to her back. Pain oftentimes brought on by greasy foods. She states pain similar to what she had before she had her gallbladder removed 3-1/2 years ago. She denies fever. She does complain of some urinary frequency but no dysuria or hematuria. She has had some loose stools in the last 5 days off-and-on. Denies any blood in her stool or black tarry stool. No history of stomach ulcers. Currently rates her pain a 2 out of 10 but before coming to the ER her pain was more severe in the upper abdomen. Patient describes intermittent chest discomfort that is not exertional and seems to come on when eating. Patient has no heart history PFSH PFS Medical History (Updated 02/09/25 @ 18:[address] Lanny Ramos, DO) Hx of bacterial pneumonia Wears glasses Non-smoker Febrile Abdominal pain Back pain Biliary stricture Choledocholithiasis Bile reflux gastritis History of biliary stent insertion Cholecystitis Acute cholangitis Choledocholithiasis with acute cholecystitis with obstruction Home Medications ?Medication ?Instructions ?Recorded ?Last Taken ?Type lansoprazole 15 mg capsule,delayed 30 mg (2 x 15 mg) PO DAILY #28 caps 02/09/25 Unknown Rx release (Prevacid 24Hr) lansoprazole 30 mg capsule,delayed 30 mg PO DAILY #14 caps 02/09/25 Unknown Rx release (Prevacid) Allergy/AdvReac Type Severity Reaction Status Date / Time No Known Allergies Allergy Verified 02/09/25 15:06 Surgical History History of ERCP History of laparoscopic cholecystectomy Hx laparoscopic cholecystectomy (~08/2021) S/P ERCP H/O hernia repair Social History Smoking Status: Never smoker ROS ROS ED Review of Systems ROS Unobtainable: other Constitutional Constitutional ED: Reports lethargy; Denies chills, fever(s), sweats or weight loss Eyes Eyes: Denies blurry vision, change in vision or diplopia ENT ENT ED: Denies rhinorrhea or sore throat Cardiovascular Cardiovascular: Reports chest pain; Denies orthopnea or racing heartbeat Respiratory/Chest Respiratory/Chest: Denies cough, dyspnea, dyspnea on exertion, orthopnea or sputum Gastrointestinal Gastrointestinal: Reports abdominal pain, diarrhea and nausea; Denies vomiting Genitourinary Genitourinary ED: Reports urinary frequency; Denies dysuria or hematuria Musculoskeletal Musculoskeletal: Denies arthralgias, back pain, myalgias or neck pain Integumentary Denies abscess, Abrasions or rash Neurologic Neurologic: Denies headache(s) or weakness Psychiatric Psychiatric: Denies anxiety, depression or suicidal thoughts Endocrine Endocrinology: Denies polydipsia, polyphagia or polyuria Hematologic/Lymphatic Hematologic/Lymphatic: Denies easy bleeding, easy bruising or lymphadenopathy Allergic/Immunologic Allergic/Immunologic ED: Denies mouth swelling, tongue swelling or urticaria EXAM Physical Exam Const Vital Signs: 02/09/25 15:06 02/09/25 15:19 02/09/25 17:06 Temperature 97.7 F L Temperature Source Oral Pulse Rate 67 62 68 Respiratory Rate 16 16 Blood Pressure 114/81 H 122/85 H Blood Pressure Mean 92 97 Pulse Ox 97 96 98 Oxygen Delivery Method Room Air Room Air Room Air 02/09/25 18:26 Temperature 97.7 F L Temperature Source Pulse Rate 68 Respiratory Rate 16 Blood Pressure 122/85 H Blood Pressure Mean 97 Pulse Ox 98 Oxygen Delivery Method Positive well nourished and well developed General Appearance ED: well developed and NAD HEENT Reports TM's clear and moist mucous membranes normocephalic and atraumatic; Negative for trauma or tenderness Tympanic Membrane ED: Yes TM's clear Eyes PERRL and EOMs intact bilaterally General Eye ED: Negative for pale conjunctiva or scleral icterus Neck no lymphadenopathy, supple and no JVD General: Negative for tenderness Chest Wall inspection of chest normal and palpation of chest normal Chest: Negative for tenderness Resp normal respiratory effort and clear to auscultation bilaterally Effort and Inspection: Negative for respiratory distress or pain with movement Auscultation: Negative for rhonchi, wheezes or diminished lung sounds Cardio regular rate, regular rhythm, S1 normal heart sound, S2 normal heart sound and no murmurs Peripheral Pulses: pulses 2+ throughout GI normal to inspection, nondistended, normoactive bowel sounds, soft to palpation, non-distended and no masses GI Narrative: Tenderness palpation in the epigastric region in the right upper quadrant with some mild guarding. There is no rebound, rigidity, or purulent signs. No mass palpated. Back/Spine no CVA tenderness and no thoracic nor lumbar tenderness Extremity normal to inspection General Extremety ED: Negative for edema General Extremity: Negative for edema Neuro oriented x3, CN's II-XII intact bilaterally, no sensory deficits noted and gait normal Sensorium / Orientation: awake, alert, oriented to person, oriented to place and oriented to time Motor Exam: strength 5/5 throughout and strength abnormal Psych mental status grossly normal Skin no rashes or lesions noted and no wounds MDM MDM MDM Narrative Medical decision making narrative: Patient presents with abdominal pain that she has had for 5 days. Pain made worse by eating greasy foods. Clinically she looks well. Abdomen relatively benign but does have tenderness in the epigastric region. Established. CBC with differential white count 5.8 with hemoglobin 13.9 platelet count 263. Chemistries unremarkable. Lactate normal less than 1. LFTs were normal. Lipase normal at 31. Urinalysis normal. We did obtain a CT scan of the abdomen pelvis with IV contrast that was unremarkable. At this point etiology of her pain unclear. In the differential is potentially gastritis. Will start on Prevacid. Patient has an appointment with Dr. Taylor's office and one of his nurse practitioners in 3 days. Patient to keep that appointment. She has never had a colonoscopy or EGD. Patient did have an EKG on arrival as well that showed a sinus rhythm with a rate of [address] changes. Troponin was normal at 7. Lab Data Attestation: I reviewed the patient's lab results. Labs: Laboratory Results - last 24 hr 02/09/25 02/09/25 15:33 16:29 WBC 5.8 RBC 4.67 Hgb 13.9 Hct 40.5 MCV 86.7 MCH 29.8 MCHC 34.3 RDW Std Deviation 38.6 RDW Coeff of Sly 12.0 Plt Count 263 MPV 9.9 Immature Gran % (Auto) 0.200 Neut % (Auto) 59.0 Lymph % (Auto) 32.4 Adams % (Auto) 6.7 Eos % (Auto) 1.0 Baso % (Auto) 0.7 Absolute Neuts (auto) 3.5 Absolute Lymphs (auto) 1.89 Nucleated RBC % 0 Sodium 138 Potassium 3.6 Chloride 102 Carbon Dioxide 24.4 Anion Gap 11 BUN 9 Creatinine 0.80 Estim Creat Clear Calc 82.04 Est GFR (MDRD) Non-Af 87 BUN/Creatinine Ratio 11.1 Glucose 104 H Lactic Acid < 1.0 Calcium 9.4 Total Bilirubin 0.39 AST 23 ALT 21 Alkaline Phosphatase 63 Troponin T High Sens 7 Total Protein 7.1 Albumin 4.4 Globulin 2.7 Albumin/Globulin Ratio 1.6 Lipase 31 Urine Color Straw Urine Clarity Clear Urine pH 6.0 Ur Specific [place] 1.010 Urine Protein 15 H Urine Glucose (UA) Normal Urine Ketones 15 H Urine Occult Blood Negative Urine Nitrite Negative Urine Bilirubin Negative Urine Urobilinogen Normal Ur Leukocyte Esterase 500 H Urine RBC 0 SEEN Urine WBC 5-10 SEEN Ur Squamous Epith Cells 5-10 SEEN Ur Transition Epith Cell 0-5 SEEN Urine Bacteria 0 SEEN Urine Mucus 0 SEEN Radiography Diagnostic Testing: Clinical Impression(s) from Imaging Studies Abdomen/Pelvis CT 02/09/25 16:35 IMPRESSION: UNREMARKABLE CONTRAST-ENHANCED CT OF THE ABDOMEN AND PELVIS Reading Location: [facility] EKG Initial EKG: Attestation: I personally reviewed and interpreted this EKG as follows: Comments: Sinus rhythm with ventricular rate of [address] changes. Discharge Plan Triage Chief Complaint: Abd Pain ED Provider: Lanny Ramos Dx/Rx/DC Orders Clinical Impression: Abdominal pain Instructions: ED Abdominal Pain Unkn Cause Fem Prescriptions: New lansoprazole [Prevacid] 30 mg capsule,delayed release(DR/EC) 30 mg PO DAILY Qty: 14 0RF lansoprazole [Prevacid 24Hr] 15 mg capsule,delayed release(DR/EC) 30 mg PO DAILY Qty: 28 0RF Primary Care Provider: Care Physician,No Primary Referrals: Friend,Pdero, [Med Staff - Active Staff] - 3-5 Days Care Physician,No Primary [Primary Care Provider] - Print Language: Macedonian Disposition Disposition: Home, Self Care Discharge Date/Time: 02/09/25 18:30
[2025-02-09] MEDS: 0.9% Normal Saline (1000mL) 1,000 ML 125 ML IV (15:47)
[2025-02-09 15:49] LABS: Absolute Lymphocyte Count 1.89 X10^3/uL (0.83-4.51); Absolute Neutrophil Count 3.5 X10^3/uL (2.0-7.7); Basophil# 0.04 X10^3/uL; Basophil% 0.7 % (0-1); Eosinophil# 0.06 X10^3/uL; Hematocrit 40.5 % (37-47); Hemoglobin 13.9 g/dL (12.0-15.0); Lymphocyte # 1.89 X10^3/ul (0.83-4.51); Lymphocyte % 32.4 % (19-41); Mean Corp Hgb Conc 34.3 g/dL (32-36); Mean Corpuscular Hgb 29.8 pg (27.0-32.0); Mean Corpuscular Volume 86.7 fL (81-99); Mean Platelet Vol. 9.9 fl (6.2-12.0); Monocyte# 0.39 X10^3/uL; Monocyte% 6.7 % (0-10); NRBC Flagged by Analyzer 0 % (0-5); Neutrophil # 3.45 X10^3/uL (2.7-7.7); Platelet Count 263 K/mm3 (150-450); RBC Distribution Width SD 38.6 fl (35.1-43.9); Red Blood Count 4.67 M/mm3 (4.2-5.4); White Blood Count 5.8 K/mm3 (4.4-11.0)
[2025-02-09 16:07] LABS: ALB/GLOB Ratio 1.6 RATIO (0.9-2.4); AST(SGOT) 23 U/L (<=31); Alanine Aminotransfer ALT/SGPT 21 U/L (<=34); Albumin, Serum 4.4 g/dL (3.5-5.0); Alkaline Phosphatase 63 U/L (35-104); Anion Gap 11 (5-15); BUN 9 mg/dL (4-19); BUN/Creat Ratio 11.1 RATIO (10-20); Calcium,Total 9.4 mg/dL (7.6-11.0); Carbon Dioxide 24.4 mmol/L (21.0-32.0); Chloride 102 mmol/L (98-108); EST Glomerular Filtration Rate 87 (>60); Estimated Creatinine Clearance 82.04 ml/min (50-250); Globulin 2.7 g/dL (2.2-4.2); Glucose 104 mg/dL (70-99); Lipase 31 U/L (13-75); Potassium 3.6 mmol/L (3.3-5.1); Protein, Total 7.1 g/dL (5.9-8.4); Sodium Level 138 mmol/L (133-145); Total Bilirubin 0.39 mg/dL (0.00-1.30)
[2025-02-09 16:29] LABS: Troponin T High Sensitivity 7 ng/L (<=14)
[2025-02-09 16:31] LABS: Lactic Acid < 1.0 mmol/L (0.0-2.0)
[2025-02-09 16:33] LABS: Bacteria 0 SEEN /hpf (None Seen); Mucous, Urine 0 SEEN /hpf (<or=2+); Red Blood Cells-Urine 0 SEEN /hpf (0-5)
--- NOTE | 2025-02-09 16:35 | CT_ITS ---
PROCEDURE: ABDOMEN/PELVIS W IV CONT ONLY 02/09/2025 REASON FOR EXAM: ABDOMINAL PAIN TECHNIQUE: Abdomen and pelvis CT with intravenous contrast. Coronal and Sagittal reconstruction series were provided. PATIENT PREPARATION: Per protocol ORAL CONTRAST TYPE: None. CONTRAST: Isovue 370 VOLUME: 100 mL One or more dose reduction techniques were used (e.g., Automated exposure control, adjustment of the mA and/or kV according to patient size, use of iterative reconstruction technique. RADIATION DOSE SUMMARY: CTDlvol: 30 mGy DLP: 900 mGycm COMPARISON: None. FINDINGS: Lung bases: Bibasilar atelectasis. The heart is normal in size. Liver: The liver is normal in size with tiny right hepatic lobe hypodensity, likely a cyst. The major portal veins are patent. Trace pneumobilia within the left hepatic lobe, compatible with prior instrumentation. Gallbladder: Surgically absent. Spleen: Normal size. Pancreas: Unremarkable. Adrenals: No adrenal mass. Kidneys: No hydronephrosis or nephrolithiasis. Bladder: Distended and unremarkable. Reproductive Organs: Normal uterine size and contour. Ovaries are unremarkable. Bowel: The bowel loops are normal in caliber. No ascites or pneumoperitoneum. Normal appendix. Lymph nodes: No suspicious lymph node enlargement. Vasculature: The abdominal aorta and IVC are normal. Bones: Minimal thoracolumbar spondylosis. No aggressive osseous lesions. CT/Abdomen/Pelvis W IV Cont ONLY IMPRESSION: UNREMARKABLE CONTRAST-ENHANCED CT OF THE ABDOMEN AND PELVIS Reading Location: [facility]
[2025-02-09 17:04] LABS: Color, Urine Straw (Yellow); Glucose, Dipstick Normal (Normal); Ketone-Dipstick 15 mg/dl (Negative); Leukocyte Esterase-Dipstick 500 /ul (Negative); Nitrite-Dipstick Negative (Negative); Occult Blood-Urine Negative /ul (Negative); Protein-Dipstick 15 mg/dl (Negative); Urine Bilirubin Dipstick Negative (Negative); Urine Clarity Clear (Clear); Urine Urobilinogen Normal (Normal)
[2025-02-09 17:06] VITALS: BP 122/85; PULSE 68; RESP 16; O2SAT 98
[2025-02-09 18:03] LABS: Squamous Epithelial Cells - UA 5-10 SEEN /hpf (5-10); White Blood Cells 5-10 SEEN /hpf (0-5)
[2025-02-09 18:05] LABS: Transitional Epithelial - Ur 0-5 SEEN /hpf (0-5)
[2025-02-09 18:26] VITALS: BP 122/85; PULSE 68; RESP 16; TEMP 36.5; O2SAT 98
== END 2025-02-09 18:30 | disposition home or self-care (01) ==
PROVIDERS: Emergency Provider Emergency Medicine; Visit Provider Emergency Medicine
DX: R10.10 Upper abdominal pain, unspecified (principal); Z90.49 Acquired absence of other specified parts of digestive tract
CPT/HCPCS: 74177; 80053; 81001; 83605; 83690; 84484; 85025; 93005; 96360; 96361; 99283; Q9967; A4216